=== PATIENT | female | born 1955 | race Two or more races ===

== ENCOUNTER → 2017-03-19 | Outpatient (CLI) | payer OTHER ==
[~2017-03-19] MED LIST: /DULO30CA; /METH500TA; CAPS0.022 TOP; CELE100C; CHEL50TA PO; COLA100C2; CYMB60CA3 PO; FERR325T3 PO; HYDR-3713 PO; IBUP-1022 PO; LYRI150C PO; LYRI300C; METH1TAB40 PO; MICO2CRE33 TOP; MS C30TA2; MS C30TA6 PO; MULTCAP11 PO; MULTIVIT; OMEP20TA7; OS-CTAB6 PO; PRIL20CA9 PO; TRIA1OI TOP; VICO5TAB; [UNRECOGNIZED DRUG - OTHER]
--- NOTE | 2017-03-19 13:43 | REPMRS ---
Patient History The patient states she had a clinical breast exam in January 2017.Patient is postmenopausal and has history of other cancer at age 34. Family history of ovarian cancer in 2 maternal aunts at age 50 or over and ovarian cancer in paternal aunt at age 50 or over. Digital Mammo Screening Bilat: March 19, 2017 - Exam #: [id number] Bilateral CC and MLO view(s) were taken. Technologist: Janessa Farr, Technologist Prior study comparison: May 29, 2015, digital woman screen mammo, performed at [facility]. January 27, 2013, digital bilateral screening mammo, performed at [facility]. June 05, 2011, digital bilateral screening mammo, performed at [facility]. FINDINGS: There are scattered fibroglandular densities. There has been no change in the appearance of the mammogram from the prior studies. There is a mild amount of scattered fibroglandular density which is fairly symmetric. There is no interval development of dominant mass, architectural distortion, or clustered microcalcification suggestive of malignancy. ASSESSMENT: BI-RADS/ACR category 1 mammogram. Negative. Recommendation Routine screening mammogram in 1 year (for women over age 40). This mammogram was interpreted with the aid of an FDA-approved computer-aided dectection system. Electronically Signed By: Aristides Canales MD 03/19/17 [id number]
== END ==
LOC: M RAD 11:11
PROVIDERS: ATTEND Internal Medicine
DX: Z12.31 Encounter for screening mammogram for malignant neoplasm of breast (principal); Z78.0 Asymptomatic menopausal state

== ENCOUNTER → 2017-05-05 | Outpatient (REF) | payer OTHER | LOC: M LAB REF 12:34 | PROVIDERS: ATTEND Internal Medicine Medical Oncology | DX: D50.9 Iron deficiency anemia, unspecified (principal) ==

== ENCOUNTER → 2017-08-19 | Outpatient (REF) | payer OTHER ==
[2017-08-19 16:24] LABS: FERRITIN 76 NG/ML (8-252); IRON (FE) 87 UG/DL (50-170); PERCENT SATURATION 27.2 % (13.2-45.0); TOTAL IRON BINDING CAPACITY 320 UG/DL (250-450)
== END ==
LOC: M LAB REF 13:50
DX: D50.9 Iron deficiency anemia, unspecified (principal)
CPT/HCPCS: 83550

== ENCOUNTER → 2017-09-13 | Outpatient (CLI) | payer OTHER | LOC: M RAD 10:08 | DX: Z12.2 Encounter for screening for malignant neoplasm of respiratory organs (principal); Z87.891 Personal history of nicotine dependence | CPT/HCPCS: G0297 ==

== ENCOUNTER → 2018-07-11 | Outpatient (REF) | payer OTHER | LOC: M SFHCLERA 12:07 | PROVIDERS: ATTEND Nurse Practitioner Family | DX: R53.81 Other malaise (principal) ==

== ENCOUNTER → 2018-07-11 | Outpatient (CLI) | payer OTHER ==
--- NOTE | 2018-07-11 12:53 | REP ---
Clinical: Malaise Comparison: 03/27/2008 the Technique: PA and lateral. Findings: The mediastinum and cardiac silhouette are normal. The lung walton are clear and without acute consolidation, effusion, or pneumothorax. The skeletal structures are intact and normal. Impression: 1. No acute cardiopulmonary process. Electronically Signed by Grey Fox MD 07/11/2018 12:45 P
== END ==
LOC: M LRY 12:31
PROVIDERS: ATTEND Nurse Practitioner Family
DX: R53.81 Other malaise (principal)

== ENCOUNTER → 2018-08-26 | Outpatient (CLI) | payer OTHER ==
--- NOTE | 2018-08-26 19:25 | REP ---
MAXILLOFACIAL CT WITHOUT CONTRAST: HISTORY: Sinusitis. Mild mucosal thickening is present in the ethmoid sinuses. Minimal mucosal thickening is present in the frontal, maxillary and sphenoid sinuses. Mucosal thickening involves the ostiomeatal units. A 5 mm osteoma is present in the left ethmoid sinus. The middle and inferior nasal turbinates are partially paradoxical. There is minimal deviation of the nasal septum to the left. The nasal septum abuts the left middle and inferior nasal turbinates. The cribriform plate, medial jennings of the orbits and optic canals are intact. The carotid canals form a segment of the posterolateral jennings of the sphenoid sinus. IMPRESSION: 1. Sinus mucosal thickening as described above. 2. 5 mm left ethmoid sinus osteoma. Electronically Signed by Emanuel Oneal MD 08/29/2018 08:17 A
== END ==
LOC: M RAD 17:02
PROVIDERS: ATTEND Internal Medicine
DX: J32.1 Chronic frontal sinusitis (principal); J32.2 Chronic ethmoidal sinusitis; J32.0 Chronic maxillary sinusitis; J32.3 Chronic sphenoidal sinusitis; J34.2 Deviated nasal septum; D16.4 Benign neoplasm of bones of skull and face

== ENCOUNTER 2019-02-03 09:52 | Day surgery (SDC) | payer OTHER ==
[~2019-02-03] VITALS: Ht 152.4 cm; Wt 86.6 kg
[~2019-02-03 09:52] MED LIST changes: -/DULO30CA; -/METH500TA; +CYMB1CAP5; +LISI10TA4 PO; +METH1TAB40; -MICO2CRE33 TOP; +MICO2CRE42 TOP; +NO ITAB PO; +NS 1,000 ML IV ONE; +OMEP20CA4 PO; +OS-CTAB PO; +PILO1OPD OD
[2019-02-03] MEDS ORDERED: PROPOFOL 200 MG/20 ML VIAL As Ordered ONE (10:58)
[2019-02-03] MEDS ORDERED: LIDOCAINE 2% INJ 100 MG/5 ML SDV (FOR ANES.) As Ordered ONE (10:58)
--- NOTE | 2019-02-03 11:09 | ROOR ---
Patient Name: Racheal Ricci Procedure Date: 02/03/2019 10:56 AM Date of : 1955 Age: 63 Room: [facility] Gender: Female Note Status: Finalized Procedure: Upper GI endoscopy Indications: Heartburn Providers: Brad VASQUEZ MD Referring MD: ADONIS JIMENEZ MD Requesting Provider: Medicines: Monitored Anesthesia Care Complications: No immediate complications. Procedure: Pre-Anesthesia Assessment: - The heart rate, respiratory rate, oxygen saturations, blood pressure, adequacy of pulmonary ventilation, and response to care were monitored throughout the procedure. The Endoscope was introduced through the mouth, and advanced to the jejunum. The upper GI endoscopy was accomplished without difficulty. The patient tolerated the procedure well. Findings: A medium-sized hiatal hernia was present. Evidence of a Spike-en-Y gastrojejunostomy was found. The gastrojejunal anastomosis was characterized by healthy appearing mucosa. The exam of the stomach was otherwise normal. The examined esophagus was normal. The Z-line was regular and was found 34 cm from the incisors. The examined jejunum was normal. Impression: - Medium-sized hiatal hernia. - Spike-en-Y gastrojejunostomy with gastrojejunal anastomosis characterized by healthy appearing mucosa. - Normal examined efferrent jejunum. - Normal esophagus. - Z-line regular, 34 cm from the incisors. - No specimens collected. Recommendation: - Continue present medications. - Observe patient's clinical course. Brad Vasquez MD Brad VASQUEZ MD 02/03/2019 11:08:59 AM Electronically signed by Brad VASQUEZ MD Number of Addenda: 0 Note Initiated On: 02/03/2019 10:56 AM Estimated Blood Loss: Estimated blood loss: none.
--- NOTE | 2019-02-03 11:27 | ROOR ---
Patient Name: Racheal Ricci Procedure Date: 02/03/2019 10:57 AM Date of : 1955 Age: 63 Room: [facility] Gender: Female Note Status: Finalized Procedure: Colonoscopy Indications: Colon cancer screening in patient at increased risk: Family history of hereditary nonpolyposis colorectal cancer Providers: Brad KELLY MD Referring MD: ADONIS JIMENEZ MD Requesting Provider: Medicines: Monitored Anesthesia Care Complications: No immediate complications. Procedure: Pre-Anesthesia Assessment: - The heart rate, respiratory rate, oxygen saturations, blood pressure, adequacy of pulmonary ventilation, and response to care were monitored throughout the procedure. The Colonoscope was introduced through the anus and advanced to the cecum, identified by appendiceal orifice and ileocecal valve. The colonoscopy was performed with difficulty due to inadequate bowel prep. The patient tolerated the procedure well. The quality of the bowel preparation was inadequate. Findings: The perianal and digital rectal examinations were normal. (Colon Prep was POOR, Inadequate Visualisation) The colon is grossly normal without large tumors or obstructing lesions. Unable to perform adequate detail examination. Small lesions may have been missed. Impression: - (Colon Prep was POOR, Inadequate Visualisation) - The colon is grossly normal without large tumors or obstructing lesions. Unable to perform adequate detail examination. Small lesions may have been missed. - No specimens collected. Recommendation: - Repeat colonoscopy at the next available appointment for screening purposes. - My office will call you within the next few days to reschedule a colonoscopy with alternate colon preparation. - Consider Genetic testing for your family history of Wilson/HNPCC. In the absence of genetic testing, would continue to recommend annual colonoscopy. Brad Kelly MD Brad KELLY MD 02/03/2019 11:26:56 AM Electronically signed by Brad KELLY MD Number of Addenda: 0 Note Initiated On: 02/03/2019 10:57 AM Estimated Blood Loss: Estimated blood loss: none.
[2019-02-03 11:55] VITALS: BP 146/73
== END 2019-02-03 11:57 | disposition home or self-care (01) ==
LOC: M OPP 09:52
PROVIDERS: ATTEND Internal Medicine Gastroenterology
DX: Z12.11 Encounter for screening for malignant neoplasm of colon (principal); Z80.0 Family history of malignant neoplasm of digestive organs; K44.9 Diaphragmatic hernia without obstruction or gangrene; Z98.0 Intestinal bypass and anastomosis status; R12 Heartburn; F17.210 Nicotine dependence, cigarettes, uncomplicated; Z79.891 Long term (current) use of opiate analgesic; Z79.899 Other long term (current) drug therapy; Z91.048 Other nonmedicinal substance allergy status; Z88.8 Allergy status to other drugs, medicaments and biological substances

== ENCOUNTER 2019-04-25 09:00 | Day surgery (SDC) | payer OTHER ==
[~2019-04-25] VITALS: Ht 152.4 cm; Wt 83.9 kg
[~2019-04-25 09:00] MED LIST changes: +AMMO12LO TOP; +FURO20TA2 PO; +LIDOCAINE 2% INJ 100 MG/5 ML SDV (FOR ANES.) As Ordered ONE; +MUCI600T31 PO; +OMEP1CAP73 PO; -OMEP20CA4 PO; +PLAQ200T4 PO; +POTA10TA17 PO; +VITA500C19 PO; +[UNRECOGNIZED DRUG - CODE] SL; +propofoL 200 MG/20 ML VIAL As Ordered ONE
--- NOTE | 2019-04-25 10:12 | ROOR ---
Patient Name: Racheal Ricci Procedure Date: 04/25/2019 9:44 AM Date of : 1955 Age: 63 Room: [facility] Gender: Female Note Status: Finalized Procedure: Colonoscopy Indications: High risk colon cancer surveillance: Personal history of colonic polyps, Family history of colon cancer in multiple second-degree relatives Providers: Brad KELLY MD Referring MD: ADONIS JIMENEZ MD Requesting Provider: Medicines: Monitored Anesthesia Care Complications: No immediate complications. Procedure: Pre-Anesthesia Assessment: - The heart rate, respiratory rate, oxygen saturations, blood pressure, adequacy of pulmonary ventilation, and response to care were monitored throughout the procedure. The Colonoscope was introduced through the anus and advanced to the cecum, identified by appendiceal orifice and ileocecal valve. The colonoscopy was performed without difficulty. The patient tolerated the procedure well. The quality of the bowel preparation was good. The bowel preparation used was TriLyte 8 liters split dosing=Neurogenic Prep dose instruction. Findings: The perianal and digital rectal examinations were normal. The colon (entire examined portion) appeared normal. Small Internal Hemorrhoids. Impression: - The entire colon is normal. - Small Internal Hemorrhoids. - No specimens collected. Recommendation: - Your genetic testing is Negative for Wilson Syndrome. - However you do have a strong family history of colon cancer. Rec: Repeat colonoscopy in 5 years. - (For next colonoscopy use again Neurogenic colon prep/8 Liters Trilyte) Brad Kelly MD Brad KELLY MD 04/25/2019 10:12:19 AM Electronically signed by Brad KELLY MD Number of Addenda: 0 Note Initiated On: 04/25/2019 9:44 AM Estimated Blood Loss: Estimated blood loss: none.
[2019-04-25 10:25] VITALS: BP 166/94
== END 2019-04-25 10:31 | disposition home or self-care (01) ==
LOC: M OPP 09:00
PROVIDERS: ATTEND Internal Medicine Gastroenterology
DX: Z12.11 Encounter for screening for malignant neoplasm of colon (principal); Z86.010 Personal history of colon polyps; Z80.0 Family history of malignant neoplasm of digestive organs; K64.8 Other hemorrhoids; I10 Essential (primary) hypertension; K44.9 Diaphragmatic hernia without obstruction or gangrene; K76.89 Other specified diseases of liver; K21.9 Gastro-esophageal reflux disease without esophagitis; M06.9 Rheumatoid arthritis, unspecified; M19.90 Unspecified osteoarthritis, unspecified site; M54.89 Other dorsalgia; M81.0 Age-related osteoporosis without current pathological fracture; M79.7 Fibromyalgia; L30.1 Dyshidrosis [pompholyx]; R21 Rash and other nonspecific skin eruption; R51 Headache; G47.30 Sleep apnea, unspecified; R06.83 Snoring; J32.9 Chronic sinusitis, unspecified; F17.210 Nicotine dependence, cigarettes, uncomplicated; Z88.8 Allergy status to other drugs, medicaments and biological substances; Z91.048 Other nonmedicinal substance allergy status; Z79.899 Other long term (current) drug therapy

== ENCOUNTER → 2019-06-12 | Outpatient (CLI) | payer MEDICARE, OTHER ==
[~2019-06-12] MED LIST changes: -LIDOCAINE 2% INJ 100 MG/5 ML SDV (FOR ANES.) As Ordered ONE; -NS 1,000 ML IV ONE; -OMEP1CAP73 PO; +OMEP20CA4 PO; -propofoL 200 MG/20 ML VIAL As Ordered ONE
--- NOTE | 2019-06-12 11:02 | REP ---
Clinical: Lung screening. History smoking. Comparison: 09/13/2017 Technique: Axial low-dose noncontrast images from the thoracic inlet to the upper abdomen using lung screening technique. Findings: The lung walton are well-aerated. Incidental azygos fissure again noted. Small calcified granuloma in the left upper lobe remains stable. No consolidation, significant nodule or mass lesion is appreciated. No pleural effusion/reaction or pneumothorax. Tracheobronchial tree is patent. Mediastinum demonstrates mild atherosclerotic changes of the coronary arteries without cardiomegaly. Impression: Lung-RADS category I. No nodule or suspicious abnormality. Management recommendations include annual low-dose CT reevaluation. Electronically Signed by Grey Fox MD 06/12/2019 10:54 A
== END ==
LOC: M RAD 09:57
PROVIDERS: ATTEND Family Medicine
DX: F17.210 Nicotine dependence, cigarettes, uncomplicated (principal)

== ENCOUNTER 2019-09-07 19:02 | Emergency (ER) | payer MEDICARE, OTHER ==
[~2019-09-07] VITALS: Ht 147.3 cm; Wt 77.7 kg
[~2019-09-07 19:02] MED LIST changes: -OSEL75CA PO; -PRED20TA PO
[2019-09-07 19:09] VITALS: BP 141/75
[2019-09-07] MEDS ORDERED: NS 500 ML IV ONE (19:45)
[2019-09-07] MEDS ORDERED: IPRATROPIUM 0.5MG/ALBUTEROL 2.5MG INH SOL UD 3ML (DUONEB)(J7620) NEB ONE (20:00)
[2019-09-07] MEDS ORDERED: dexameTHASONE 20 MG/5 ML VIAL (J1100) IV ONE (20:00)
[2019-09-07] MEDS ORDERED: FUROSEMIDE 100 MG/10 ML VIAL (J1940) IV ONE (20:45)
[2019-09-07 21:48] LABS: BASO % 0.2 % (0.0-1.0); EOS % 0.1 % (0.0-3.0); HEMATOCRIT 37.5 % (36.0-47.0); LYMPH # 1.6 10^3/uL (1.5-5.0); LYMPH % 12.7 % (24.0-44.0); MEAN CORPUSCULAR HEMOGLOBIN 26.5 pg (27.0-33.0); MEAN CORPUSCULAR VOLUME 82.8 fl (80.0-96.0); MONO # 0.8 10^3/uL (0.0-0.8); MONO % 6.1 % (0.0-5.0); NEUTROPHILS # 10.3 10^3/uL (1.5-8.5); NEUTROPHILS % 80.4 % (36.0-66.0); PLATELET COUNT, AUTOMATED 280 10^3/uL (150-450); RED BLOOD COUNT 4.53 10^6/uL (4.00-5.40); WHITE BLOOD COUNT 12.8 10^3/uL (4.0-10.0)
[2019-09-07 22:02] LABS: BLOOD UREA NITROGEN 9 MG/DL (7-18); CALCIUM LEVEL 8.7 MG/DL (8.8-10.2); CARBON DIOXIDE LEVEL 28 MEQ/L (21-32); CHLORIDE LEVEL 100 MEQ/L (98-107); CREATININE FOR GFR 0.66 MG/DL (0.55-1.30); GLOMERULAR FILTRATION RATE > 60.0 (>45); GLUCOSE, FASTING 101 MG/DL (70-100); POTASSIUM SERUM 3.9 MEQ/L (3.5-5.1); SODIUM LEVEL 133 MEQ/L (136-145)
[2019-09-07 22:18] LABS: INFLUENZA A AMPLIFICATION POSITIVE (NEGATIVE); INFLUENZA B AMPLIFICATION NEGATIVE (NEGATIVE)
[2019-09-07] MEDS ORDERED: OSELTAMIVIR PHOSPHATE 75 MG CAP (TAMIFLU) PO ONE (22:30)
[2019-09-07] MEDS ORDERED: KETOROLAC 30 MG/ML VIAL (J1885) IV ONE (22:30)
[2019-09-07] MEDS ORDERED: PRED20TA PO (22:57)
[2019-09-07] MEDS ORDERED: OSEL75CA PO (22:57)
--- NOTE | 2019-09-08 07:56 | REP ---
PA and lateral chest, 08:21 p.m.: Comparison is the PA and lateral chest from 05:47 p.m.. The lung walton are clear. Cardiac size is normal. The kinsey, mediastinum, skeletal structures are unremarkable except for a tortuous thoracic aorta with a prominent aortic arch, unchanged. An azygos lobe of the right lung is incidentally identified. A hiatal hernia is again incidentally identified. A cervical spine stabilization plate is again identified. Impression: No acute cardiopulmonary findings. No interval change. Electronically Signed by Abisai Prajapati MD 09/08/2019 07:48 A
== END 2019-09-07 23:35 | disposition home or self-care (01) ==
LOC: M ED 19:02
DX: J09.X2 Influenza due to identified novel influenza A virus with other respiratory manifestations (principal); J40 Bronchitis, not specified as acute or chronic; K21.9 Gastro-esophageal reflux disease without esophagitis; Z79.891 Long term (current) use of opiate analgesic; Z79.899 Other long term (current) drug therapy
CPT/HCPCS: 71046; 80048; 85025; 87040; 87502; 87804; 94640; 96374; 96375; 99283; G0463; J1100; J1885; J1940; J7613

== ENCOUNTER → 2019-09-07 | Outpatient (CLI) | payer MEDICARE, OTHER ==
[~2019-09-07] MED LIST changes: +OMEP1CAP73 PO; -OMEP20CA4 PO; +OSEL75CA PO; +PRED20TA PO
--- NOTE | 2019-09-07 18:12 | REP ---
Chest x-ray: Two views. History: Shortness of breath. Comparison chest x-ray: July 11, 2018. Findings: An azygos lobe is again noted. The patient is status post ventral discectomy and fusion plating in the cervical spine. The thoracic aorta is tortuous and calcific. There is evidence of a small sliding-type hiatal hernia. The heart is not enlarged. There is levoconvex curvature in the lower thoracic spine. Pulmonary vasculature is not increased. Impression: Mild hyperinflation. Small hiatal hernia. Otherwise no acute disease. Electronically Signed by Florin Canales MD 09/07/2019 06:03 P
== END ==
LOC: M LRY 17:38
PROVIDERS: ATTEND Nurse Practitioner Family
DX: K44.9 Diaphragmatic hernia without obstruction or gangrene (principal); R06.02 Shortness of breath

== ENCOUNTER → 2020-06-24 | Outpatient (CLI) | payer SELFPAY ==
[~2020-06-24] MED LIST changes: +OSEL75CA PO; +PRED20TA PO
== END ==
LOC: M LABSMTC 16:03
PROVIDERS: ATTEND Pediatrics
DX: Z20.828 Contact with and (suspected) exposure to other viral communicable diseases (principal)

== ENCOUNTER → 2020-07-24 | Outpatient (CLI) | payer MEDICARE, OTHER ==
[~2020-07-24] MED LIST changes: +LISI10TA22 PO; -LISI10TA4 PO; +METH-1164 PO; -METH1TAB40 PO
--- NOTE | 2020-07-24 14:25 | REP ---
INDICATION: NICOTINE DEPENDENCE COMPARISON: 06/12/2019, 09/13/2017 TECHNIQUE: Axial noncontrast images from the thoracic inlet to the upper abdomen using low-dose lung screening technique (LDCT). FINDINGS: Lung walotn are well aerated and essentially clear. Incidental azygos fissure noted. Small calcified density in the left upper lobe remains unchanged. No suspicious consolidation, nodule, or mass lesion. No effusion. No pneumothorax. IMPRESSION: Lung-RADS category 1. Management recommendations include annual low-dose CT surveillance. <Electronically signed by Grey Fox > 07/24/20 [id number]
== END ==
LOC: M RAD 13:42
PROVIDERS: ATTEND Family Medicine
DX: Z12.2 Encounter for screening for malignant neoplasm of respiratory organs (principal); F17.210 Nicotine dependence, cigarettes, uncomplicated

== ENCOUNTER → 2021-01-31 | Outpatient (CLI) | payer MEDICARE, OTHER ==
--- NOTE | 2021-01-31 11:35 | REPVR ---
PROCEDURE INFORMATION: Exam: CT Maxillofacial Without Contrast, Sinus Exam date and time: 01/31/2021 10:05 AM Age: 65 years old Clinical indication: Pain; Other: Sinus; Additional info: Pansinusitis TECHNIQUE: Imaging protocol: CT Maxillofacial without contrast. Focus on the sinuses. Radiation optimization: All CT scans at this facility use at least one of these dose optimization techniques: automated exposure control; mA and/or kV adjustment per patient size (includes targeted exams where dose is matched to clinical indication); or iterative reconstruction. COMPARISON: CT Maxilofacial w/out contrast 08/26/2018 5:16 PM FINDINGS: Frontal sinuses: Trace right frontal recess mucosal thickening, improved since prior. Small left frontal sinus air-fluid level. The left frontal recess is opacified by fluid or mucosal disease. Ethmoid air cells: Mild scattered ethmoid mucosal thickening. Sphenoid sinuses: Normal. No air-fluid levels. Maxillary sinuses: Normal. No air-fluid levels. Ostiomeatal units are patent. Nasal cavity/Septum: No nasal cavity masses. The nasal septum is mildly deviated to the left. There is left francisca lamella. Orbital cavity: Orbits are normal. Globes are unremarkable. Bones/joints: Unremarkable. Soft tissues: Unremarkable. Mastoid air cells: The mastoids are chronically underpneumatized. Nonspecific fluid in the right mastoid antrum, new since prior, potentially reflects eustachian dysfunction. IMPRESSION: Nonspecific fluid in the left frontal sinus may be consistent with acute sinusitis. Electronically signed by: Anna Sahni On 01/31/2021 11:34:33 AM
== END ==
LOC: M RAD 09:47
PROVIDERS: ATTEND Otolaryngology
DX: J32.4 Chronic pansinusitis (principal)

== ENCOUNTER → 2021-02-15 | Outpatient (CLI) | payer MEDICARE, OTHER ==
[~2021-02-15] MED LIST changes: +CYAN1000VL IM; +HYDR-4514 PO; +NASA1SPR NARES; +SALA1TAB PO; +TRAZ-252 PO
== END ==
LOC: M LABSMTC 10:46
PROVIDERS: ATTEND Anesthesiology
DX: Z01.812 Encounter for preprocedural laboratory examination (principal); Z20.822 Contact with and (suspected) exposure to COVID-19

== ENCOUNTER 2021-02-20 10:10 | Day surgery (SDC) | payer MEDICARE, OTHER ==
[~2021-02-20] VITALS: Ht 147.3 cm; Wt 79.9 kg
[~2021-02-20 10:10] MED LIST changes: +LIDOCAINE 1% MDV 20ML VIAL SQ PRN; +LR 1,000 ML IV ONE
[2021-02-20] MEDS ORDERED: SYNT25TA PO (10:34)
[2021-02-20] MEDS ORDERED: CIPRODEX OTIC SUSP 7.5ML As Ordered ONE (11:34)
[2021-02-20] MEDS ORDERED: CETACAINE SPRAY 5GM As Ordered ONE (11:34)
[2021-02-20] MEDS ORDERED: EPINEPHrine 1MG/ML INJ 30ML MD-VIAL As Ordered ONE (11:35)
[2021-02-20] MEDS ORDERED: LIDOCAINE W/EPINEPHRINE 1% 20ML VIAL As Ordered ONE (11:35)
[2021-02-20] MEDS ORDERED: METHYLENE BLUE 0.5% (5MG/ML) 10 ML AMP (PROVAYBLUE) As Ordered ONE (11:35)
[2021-02-20] MEDS ORDERED: ACETAMINOPHEN 1000MG 100ML IV BTL (OFIRMEV) (J0131 PER 10MG) As Ordered ONE (12:15)
[2021-02-20] MEDS ORDERED: fentaNYL 100 MCG/2 ML INJECTION (J3010) As Ordered ONE ×2 (12:23→12:55)
[2021-02-20] MEDS ORDERED: MIDAZOLAM INJ 2MG/2ML VIAL (J2250 PER 1MG) As Ordered ONE (12:23)
[2021-02-20] MEDS ORDERED: ROCURONIUM BROMIDE 50 MG/5 ML VIAL As Ordered ONE (12:27)
[2021-02-20] MEDS ORDERED: dexameTHASONE 4 MG/ML 1ML VIAL (J1100 PER 1MG) As Ordered ONE (12:27)
[2021-02-20] MEDS ORDERED: ePHEDrine SULFATE 25 MG/5 ML(5MG/ML) SYRINGE As Ordered ONE (12:27)
[2021-02-20] MEDS ORDERED: propofoL 200 MG/20 ML VIAL As Ordered ONE (12:27)
[2021-02-20] MEDS ORDERED: PHENYLephrine 500MCG 5ML (100MCG/ML) SYRINGE As Ordered ONE (12:27)
[2021-02-20] MEDS ORDERED: SUGAMMADEX SODIUM 500 MG/5 ML VIAL (BRIDION) As Ordered ONE (12:28)
[2021-02-20] MEDS ORDERED: ONDANSETRON 4MG/2ML VIAL As Ordered ONE (12:28)
[2021-02-20] MEDS ORDERED: oxyCODONE 5MG TAB PO PRN (13:30)
[2021-02-20] MEDS ORDERED: ONDANSETRON 4MG/2ML VIAL IV PRN (13:30)
[2021-02-20] MEDS ORDERED: LR 1,000 ML IV SCH (13:30)
[2021-02-20] MEDS ORDERED: fentaNYL 100 MCG/2 ML INJECTION (J3010) IV PRN (13:30)
[2021-02-20] MEDS: HYDROMORPHONE HCL 0.5 MG/ 0.5 ML SYRINGE (J1170 PER 1) IV PRN ×2 (14:10→14:18)
[2021-02-20] MEDS ORDERED: LABETALOL 100MG/20ML VIAL IV PRN (14:10)
[2021-02-20] MEDS: hydrALAZINE 20MG/ML 1ML VIAL (J0360 PER 20MG) IV PRN ×3 (14:14→14:26)
[2021-02-20 14:26] VITALS: BP 162/91
[2021-02-20 15:55] VITALS: BP 117/65
--- NOTE | 2021-02-21 08:22 | RO ---
OPERATIVE NOTE DATE OF OPERATION: 02/20/2021 PREOPERATIVE DIAGNOSIS: Chronic frontal sinusitis, laryngitis and bilateral otitis media effusion. POSTOPERATIVE DIAGNOSIS: Chronic frontal sinusitis, laryngitis and bilateral otitis media effusion. OPERATIVE PROCEDURE: Bilateral nasofrontal sinusotomy, laryngoscopy, biopsy and bilateral tympanostomy. SURGEON: Thony Whitlock MD MILL ORDER SCHEDULER: ANESTHESIA: FINDINGS: There was swollen mucosa in the entry point of the nasofrontal area on both sides especially on the left side. There were bilateral middle ear effusions. 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 DESCRIPTION OF PROCEDURE: Under general anesthesia with the patient intubated, the patient prepped and draped in the usual manner. I used pledgets of adrenalin 1:1000. I removed part of the lateral aspect of the anterior part of the middle turbinate on the right side and then opened up into the area above. The above findings were seen. I opened the nasofrontal area. The same procedure and findings were carried out on this side. I did not have to remove a portion of the middle turbinate on the left side. There was 10 mL estimated blood loss. I put Propel implant stents in both sites. I then put a speculum in the left ear. Wax was cleaned. An incision made inferiorly and fluid is suctioned. A tube is placed. The same procedure and findings carried out on the opposite side. A Hidalgo-Peter mouth gag was inserted. It was positioned in place. The above findings were seen. I used the suspension apparatus and then biopsied the lesion, removing the leukoplakia which was approximately 1 mm diameter midportion of the right vocal cord. I sprayed with Cetacaine. The patient tolerated the procedure well. The patient was extubated and transferred to the recovery room in excellent condition.
== END 2021-02-20 16:07 | disposition home or self-care (01) ==
LOC: M SDC 10:10
PROVIDERS: ATTEND Otolaryngology
DX: J31.0 Chronic rhinitis (principal); J38.3 Other diseases of vocal cords; H65.23 Chronic serous otitis media, bilateral; J37.0 Chronic laryngitis; M79.7 Fibromyalgia; I10 Essential (primary) hypertension; E03.9 Hypothyroidism, unspecified; F17.218 Nicotine dependence, cigarettes, with other nicotine-induced disorders; F32.9 Major depressive disorder, single episode, unspecified; F41.9 Anxiety disorder, unspecified; Z88.8 Allergy status to other drugs, medicaments and biological substances; G47.33 Obstructive sleep apnea (adult) (pediatric); Z79.899 Other long term (current) drug therapy
CPT/HCPCS: 31276; 31535; 69436; 88305; C2625; J0131; J0360; J1100; J1170; J2250; J2370; J2405; J3010; Q9968

== ENCOUNTER → 2021-09-02 | Outpatient (CLI) | payer MEDICARE, OTHER ==
[~2021-09-02] MED LIST changes: -CYMB60CA3 PO; +CYMB60CA4 PO; -LIDOCAINE 1% MDV 20ML VIAL SQ PRN; -LR 1,000 ML IV ONE; +SYNT25TA PO
[2021-09-02 12:26] LABS: HEMATOCRIT 32.5 % (36.0-47.0); MEAN CORPUSCULAR HEMOGLOBIN 24.7 pg (27.0-33.0); MEAN CORPUSCULAR HGB CONC 30.8 g/dl (32.0-36.5); MEAN CORPUSCULAR VOLUME 80.2 fl (80.0-96.0); PLATELET COUNT, AUTOMATED 427 10^3/uL (150-450); RED BLOOD COUNT 4.05 10^6/uL (4.00-5.40); WHITE BLOOD COUNT 8.8 10^3/uL (4.0-10.0)
[2021-09-02 12:39] LABS: INR 0.94
[2021-09-02 12:55] LABS: ALBUMIN 3.4 GM/DL (3.2-5.2); ALT/SGPT 17 U/L (12-78); BILIRUBIN,TOTAL 0.3 MG/DL (0.2-1.0); BLOOD UREA NITROGEN 17 MG/DL (7-18); CALCIUM LEVEL 8.8 MG/DL (8.8-10.2); CARBON DIOXIDE LEVEL 25 MEQ/L (21-32); CHLORIDE LEVEL 103 MEQ/L (98-107); CREATININE FOR GFR 0.71 MG/DL (0.55-1.30); GLOMERULAR FILTRATION RATE > 60.0 (>45); GLUCOSE, FASTING 90 MG/DL (70-100); POTASSIUM SERUM 4.6 MEQ/L (3.5-5.1); SODIUM LEVEL 135 MEQ/L (136-145); TOTAL PROTEIN 6.6 GM/DL (6.4-8.2)
[2021-09-02 13:00] LABS: ERYTHROCYTE SEDIMENTATION RATE 22 mm/hr (0-30)
== END ==
LOC: M RAD 11:29
PROVIDERS: ATTEND Orthopaedic Surgery
DX: Z01.818 Encounter for other preprocedural examination (principal); M17.12 Unilateral primary osteoarthritis, left knee

== ENCOUNTER → 2021-09-17 | Outpatient (CLI) | payer MEDICARE, OTHER | LOC: M RAD 10:52 | PROVIDERS: ATTEND Family Medicine | DX: Z12.2 Encounter for screening for malignant neoplasm of respiratory organs (principal); F17.210 Nicotine dependence, cigarettes, uncomplicated ==

== ENCOUNTER → 2022-02-19 | Outpatient (CLI) | payer MEDICARE, OTHER ==
[~2022-02-19] MED LIST changes: +POTA-150 PO; -POTA10TA17 PO
== END ==
LOC: M WHC 15:28
PROVIDERS: ATTEND Family Medicine
DX: Z12.31 Encounter for screening mammogram for malignant neoplasm of breast (principal)

== ENCOUNTER → 2022-09-10 | Outpatient (CLI) | payer MEDICARE, OTHER | LOC: M CARPUL 10:51 | PROVIDERS: ATTEND Internal Medicine Pulmonary Disease | DX: R91.8 Other nonspecific abnormal finding of lung field (principal) ==

== ENCOUNTER 2022-09-28 16:52 | Inpatient (IN) | payer MEDICARE, OTHER ==
[~2022-09-28] VITALS: Ht 147.3 cm; Wt 68.6 kg
[2022-09-28 17:42] LABS: BASO # 0.1 10^3/uL (0.0-0.2); BASO % 0.2 % (0.0-1.0); EOS # 0.1 10^3/uL (0.0-0.5); EOS % 0.2 % (0.0-3.0); HEMATOCRIT 32.1 % (36.0-47.0); HEMOGLOBIN 10.1 g/dl (12.0-15.5); LYMPH # 1.7 10^3/uL (1.5-5.0); LYMPH % 4.6 % (24.0-44.0); MEAN CORPUSCULAR HEMOGLOBIN 25.1 pg (27.0-33.0); MEAN CORPUSCULAR HGB CONC 31.5 g/dl (32.0-36.5); MEAN CORPUSCULAR VOLUME 79.7 fl (80.0-96.0); MONO % 4.7 % (2.0-8.0); NEUTROPHILS # 32.7 10^3/uL (1.5-8.5); NEUTROPHILS % 89.3 % (36.0-66.0); PLATELET COUNT, AUTOMATED 567 10^3/uL (150-450); RED BLOOD COUNT 4.03 10^6/uL (4.00-5.40)
[2022-09-28 18:07] LABS: BLOOD UREA NITROGEN 28 MG/DL (9-23); CARBON DIOXIDE LEVEL 24 MMOL/L (20-31); CHLORIDE LEVEL 99 MMOL/L (98-107); CREATININE FOR GFR 0.86 MG/DL (0.55-1.30); GLOMERULAR FILTRATION RATE > 60.0 (>45); GLUCOSE, FASTING 89 MG/DL (74-106); MONO # 1.7 10^3/uL (0.0-0.8); POTASSIUM SERUM 3.3 MMOL/L (3.5-5.1); SODIUM LEVEL 132 MMOL/L (136-145); WHITE BLOOD COUNT 36.7 10^3/uL (4.0-10.0)
[2022-09-28] MEDS ORDERED: POTASSIUM CHLORIDE 10MEQ SR TABLET PO ONE (18:10)
[2022-09-28] MEDS ORDERED: PIPERACILLIN/TAZOBACTAM SOD 4.5 GM in D5W MINI-BAG PLUS 50 ML IV ONE (18:15)
[2022-09-28] MEDS ORDERED: ISOVUE-370 76% 100ML VIAL As Ordered ONE (18:29)
[2022-09-28 19:09] LABS: CK-MB VALUE MASS 1.1 NG/ML (<3.6)
[2022-09-28 19:11] LABS: ALBUMIN 1.9 G/DL (3.2-5.2); ALKALINE PHOSPHATASE 302 U/L (46-116); ALT/SGPT 20 U/L (7.0-40); AST/SGOT 14 U/L (<34); BILIRUBIN,DIRECT < 0.1 MG/DL (<0.4); BILIRUBIN,TOTAL < 0.2 MG/DL (0.3-1.2); CPK CREATINE PHOSPHOKINASE 27 U/L (34-145); MB/CK RELATIVE INDEX 4.07 (< OR =4); TOTAL PROTEIN 5.7 G/DL (5.7-8.2)
[2022-09-28] MEDS ORDERED: NS 2,240 ML in IV 1 EA IV ONE (19:50)
[2022-09-28] MEDS ORDERED: LYRI200C PO (20:29)
[2022-09-28] MEDS ORDERED: CAPS42.54 TOP (20:29)
[2022-09-28] MEDS ORDERED: DULO30CA9 PO (20:29)
[2022-09-28] MEDS ORDERED: MS C15TA8 PO (20:29)
[2022-09-28] MEDS ORDERED: HYPR15DR3 OU (20:29)
[2022-09-28] MEDS ORDERED: VANI1CRE5 TOP (20:29)
[2022-09-28] MEDS ORDERED: ERGO500029 PO (20:29)
[2022-09-28] MEDS ORDERED: HOME MED LIST COMPLETE! XX SCH (20:35)
[2022-09-28] MEDS ORDERED: ANEXSIA, NORCO 7.5MG/325MG TABLET(HYDROCODONE/APAP) PO PRN (20:55)
[2022-09-28] MEDS ORDERED: TRIAMCINOLONE ACET 0.1% OINTMENT 15GM TOP PRN (20:55)
[2022-09-28] MEDS: MICONAZOLE TOPICAL 2% CREAM 15GM TOP SCH (21:00)
[2022-09-28] MEDS ORDERED: VANCOMYCIN HCL 1,000 MG, VIAL MATE ADAPTER 1 EACH in NS 250 ML IV SCH (21:20)
[2022-09-28 21:22] LABS: APPEARANCE, URINE CLEAR (CLEAR); BACTERIA, URINE AUTO NEGATIVE (NEGATIVE); BILIRUBIN, URINE AUTO NEGATIVE (NEGATIVE); BLOOD, URINE BLOOD NEGATIVE (NEGATIVE); COLOR, URINE YELLOW (YELLOW); GLUCOSE, URINE (UA) AUTO NEGATIVE (NEGATIVE); KETONE, URINE AUTO NEGATIVE (NEGATIVE); LEUKOCYTE ESTERASE, URINE AUTO NEGATIVE (NEGATIVE); NITRITE, URINE AUTO NEGATIVE (NEGATIVE); PROTEIN, URINE AUTO NEGATIVE (NEGATIVE); RBC, URINE AUTO 0 /HPF (0-3); SPECIFIC GRAVITY URINE AUTO 1.034 (1.002-1.035); SQUAMOUS EPITHELIAL CELL UR AU 4 /HPF (0-6); UROBILINOGEN, URINE AUTO 0.2 mg/dL (0.0-2.0); WBC, URINE AUTO 2 /HPF (0-3)
[2022-09-28] MEDS ORDERED: VANCOMYCIN HCL 750 MG, VIAL MATE ADAPTER 1 EACH in D5W 250 ML IV ONE ×2 (22:00→23:00)
[2022-09-28 22:10] VITALS: BP 133/68
[2022-09-28] MEDS: MORPHINE 15 MG SA TAB PO SCH (22:57)
[2022-09-28] MEDS: traZODone 50 MG TAB PO SCH (22:57)
[2022-09-28] MEDS: OMEPRAZOLE 20MG CAP PO SCH (22:58)
[2022-09-28] MEDS: DULoxetine 30MG CAPSULE (CYMBALTA) PO SCH (22:58)
[2022-09-28] MEDS: PREGABALIN 100 MG CAP (LYRICA) PO SCH (22:58)
[2022-09-29] VITALS (43 sets, daily range): BP systolic 78–122; BP diastolic 47–64; PULSE 120–125; O2SAT 91–99
[2022-09-29] MEDS: PIPERACILLIN/TAZOBACTAM SOD 4.5 GM in D5W MINI-BAG PLUS 50 ML IV SCH ×4 (01:12→18:33)
[2022-09-29] MEDS ORDERED: IPRATROPIUM 0.5MG/ALBUTEROL 2.5MG INH SOL UD 3ML (DUONEB) NEB ONE (01:40)
[2022-09-29] MEDS: LEVOTHYROXINE 25MCG TABLET (0.025MG) PO SCH (05:43)
[2022-09-29 05:45] LABS: HEMATOCRIT 33.1 % (36.0-47.0); HEMOGLOBIN 10.2 g/dl (12.0-15.5); MEAN CORPUSCULAR HEMOGLOBIN 24.6 pg (27.0-33.0); MEAN CORPUSCULAR HGB CONC 30.8 g/dl (32.0-36.5); MEAN CORPUSCULAR VOLUME 79.8 fl (80.0-96.0); PLATELET COUNT, AUTOMATED 594 10^3/uL (150-450); RED BLOOD COUNT 4.15 10^6/uL (4.00-5.40)
[2022-09-29 05:51] LABS: WHITE BLOOD COUNT 35.1 10^3/uL (4.0-10.0)
[2022-09-29 06:09] LABS: ALBUMIN 1.7 G/DL (3.2-5.2); ALKALINE PHOSPHATASE 283 U/L (46-116); ALT/SGPT 16 U/L (7.0-40); AST/SGOT 10 U/L (<34); BILIRUBIN,TOTAL 0.2 MG/DL (0.3-1.2); BLOOD UREA NITROGEN 22 MG/DL (9-23); CALCIUM LEVEL 7.9 MG/DL (8.3-10.6); CARBON DIOXIDE LEVEL 24 MMOL/L (20-31); CHLORIDE LEVEL 100 MMOL/L (98-107); GLOMERULAR FILTRATION RATE > 60.0 (>45); GLUCOSE, FASTING 71 MG/DL (74-106); MAGNESIUM LEVEL 1.6 MG/DL (1.8-2.4); POTASSIUM SERUM 3.6 MMOL/L (3.5-5.1); SODIUM LEVEL 135 MMOL/L (136-145); TOTAL PROTEIN 5.2 G/DL (5.7-8.2)
[2022-09-29] MEDS ORDERED: AZITHROMYCIN 250MG TABLET PO SCH (07:20)
[2022-09-29] MEDS ORDERED: DEXTROSE 50% 50ML SYRINGE IV PRN (07:35)
[2022-09-29] MEDS ORDERED: GLUCAGON INJ 1MG VIAL SC PRN (07:35)
[2022-09-29] MEDS ORDERED: MAG SULF 1GM/100ML (MAG RUN) 1 GM in IV 1 EA IV ONE (07:35)
[2022-09-29] MEDS ORDERED: GLUCOSE 4GM CHEW TABLET PO PRN (07:35)
[2022-09-29] MEDS: ENOXAPARIN 40MG/0.4ML SYRINGE (J1650 PER 10MG) SC SCH (08:21)
[2022-09-29] MEDS: MICONAZOLE TOPICAL 2% CREAM 15GM TOP SCH ×2 (08:22→20:16)
[2022-09-29] MEDS: DULoxetine 30MG CAPSULE (CYMBALTA) PO SCH ×2 (08:22→20:13)
[2022-09-29] MEDS: OMEPRAZOLE 20MG CAP PO SCH ×2 (08:23→20:13)
[2022-09-29] MEDS: SENNA 8.6 MG TAB (SENOKOT) PO SCH ×2 (08:23→20:13)
[2022-09-29] MEDS: PREGABALIN 75 MG CAP(LYRICA) PO SCH ×2 (08:23→15:00)
[2022-09-29] MEDS: MORPHINE 15 MG SA TAB PO SCH (08:24)
[2022-09-29 12:47] LABS: MAGNESIUM LEVEL 1.9 MG/DL (1.8-2.4)
[2022-09-29] MEDS ORDERED: LIDOCAINE 1% MDV 20ML VIAL As Ordered ONE ×2 (12:49→12:58)
[2022-09-29] MEDS ORDERED: flumazeniL 0.5MG/5ML VIAL As Ordered ONE (12:53)
[2022-09-29] MEDS ORDERED: MIDAZOLAM INJ 2MG/2ML VIAL As Ordered ONE ×2 (12:53→12:54)
[2022-09-29 13:11] LABS: VANCOMYCIN RANDOM 5.1 UG/ML
[2022-09-29] MEDS ORDERED: ALTEPLASE 2MG/2ML VIAL XX ONE (13:20)
[2022-09-29] MEDS ORDERED: MIDAZOLAM INJ 2MG/2ML VIAL IV STA (13:50)
[2022-09-29] MEDS ORDERED: LIDOCAINE 1% MDV 20ML VIAL SC ONE (13:50)
[2022-09-29] MEDS ORDERED: VANCOMYCIN HCL 750 MG, VIAL MATE ADAPTER 1 EACH in D5W 250 ML IV ONE (14:00)
[2022-09-29] MEDS ORDERED: ONDANSETRON 4MG 2ML VIAL IV PRN (14:05)
[2022-09-29] MEDS ORDERED: LEVALBUTEROL 1.25MG 0.5ML CONCENTRATE NEB NEB PRN (14:05)
[2022-09-29] MEDS ORDERED: BISACODYL 10MG SUPP PR PRN (14:05)
[2022-09-29 14:34] LABS: ABG BASE EXCESS -3.1 (-2.0-2.0); ABG HCO3 23.4 MEQ/L (22.0-26.0); ABG O2 SATURATION 96.8 % (95.0-99.0); ABG PARTIAL PRESSURE CO2 48.4 mmHg (35.0-45.0); ABG PARTIAL PRESSURE O2 93.9 mmHg (75.0-100.0); ABG STANDARD HCO3 21.9 MEQ/L (22.0-26.0); ABG TOTAL CO2 24.9 MEQ/L (23.0-31.0); ABG pH (ARTERIAL) 7.302 UNITS (7.350-7.450)
[2022-09-29] MEDS: MAGNESIUM OXIDE 400MG TAB (MAG-OX) PO SCH ×2 (15:09→20:13)
[2022-09-29] MEDS: KETOROLAC 30 MG/ML 1ML VIAL IV SCH ×2 (15:41→20:14)
[2022-09-29] MEDS: KCL 20MEQ IN D5/NS 1000ML 1,000 ML IV SCH (15:41)
[2022-09-29 17:09] LABS: ABG BASE EXCESS -1.8 (-2.0-2.0); ABG HCO3 24.4 MEQ/L (22.0-26.0); ABG O2 SATURATION 98.5 % (95.0-99.0); ABG PARTIAL PRESSURE CO2 48.2 mmHg (35.0-45.0); ABG PARTIAL PRESSURE O2 128.8 mmHg (75.0-100.0); ABG TOTAL CO2 25.9 MEQ/L (23.0-31.0); ABG pH (ARTERIAL) 7.323 UNITS (7.350-7.450)
[2022-09-29 18:44] LABS: SOURCE, BODY FLUID pH PLEURAL
[2022-09-29 19:09] LABS: SOURCE, BODY FLUID ALBUMIN PLEURAL
[2022-09-29 19:14] LABS: SOURCE, BODY FLUID TRIG PLEURAL; TRIGLYCERIDE, BODY FLUID 48 MG/DL (NOT ESTABLISHED)
[2022-09-29 19:15] LABS: SOURCE, BODY FLUID GLUCOSE PLEURAL
[2022-09-29 19:16] LABS: SOURCE, BODY FLUID TOT PROTEIN PLEURAL; TOTAL PROTEIN, BODY FLUID 3.9 G/DL (NOT ESTABLISHED)
[2022-09-29 19:16] LABS: AMYLASE, BODY FLUID 22 U/L (NOT ESTABLISHED); SOURCE, BODY FLUID AMYLASE PLEURAL
[2022-09-29 19:17] LABS: CHOLESTEROL, BODY FLUID 53 MG/DL (NOT ESTABLISHED); SOURCE, BODY FLUID CHOL PLEURAL
[2022-09-29] MEDS: LEVALBUTEROL 1.25MG 0.5ML CONCENTRATE NEB NEB SCH (19:18)
[2022-09-29 19:26] LABS: SOURCE, BODY FLUID LDH PLEURAL
[2022-09-29 19:28] LABS: LDH, BODY FLUID 3101 U/L (NOT ESTABLISHED)
[2022-09-29 19:31] LABS: APPEARANCE, BODY FLUID TURBID (CLEAR); PLEURAL FL COLOR RED (COLORLESS); SOURCE, BODY FLUID PLEURAL
[2022-09-29] MEDS: DOCUSATE SODIUM 100MG CAPSULE PO SCH (20:13)
[2022-09-29] MEDS: VANCOMYCIN HCL 750 MG, VIAL MATE ADAPTER 1 EACH in D5W 250 ML IV SCH (21:49)
[2022-09-30] VITALS (24 sets, daily range): BP systolic 91–151; BP diastolic 55–78; O2SAT 91–99
[2022-09-30] MEDS: PIPERACILLIN/TAZOBACTAM SOD 4.5 GM in D5W MINI-BAG PLUS 50 ML IV SCH ×4 (00:42→18:20)
[2022-09-30] MEDS: LEVALBUTEROL 1.25MG 0.5ML CONCENTRATE NEB NEB SCH ×4 (01:11→20:03)
[2022-09-30] MEDS: KETOROLAC 30 MG/ML 1ML VIAL IV SCH ×4 (02:40→20:32)
[2022-09-30] MEDS: KCL 20MEQ IN D5/NS 1000ML 1,000 ML IV SCH (02:59)
[2022-09-30] MEDS: LEVOTHYROXINE 25MCG TABLET (0.025MG) PO SCH (05:21)
[2022-09-30 05:22] LABS: BASO % 0.1 % (0.0-1.0); EOS % 0.2 % (0.0-3.0); HEMATOCRIT 27.5 % (36.0-47.0); HEMOGLOBIN 8.4 g/dl (12.0-15.5); LYMPH # 1.3 10^3/uL (1.5-5.0); LYMPH % 5.9 % (24.0-44.0); MEAN CORPUSCULAR HEMOGLOBIN 24.6 pg (27.0-33.0); MEAN CORPUSCULAR HGB CONC 30.5 g/dl (32.0-36.5); MEAN CORPUSCULAR VOLUME 80.6 fl (80.0-96.0); MONO % 4.5 % (2.0-8.0); NEUTROPHILS # 19.2 10^3/uL (1.5-8.5); NEUTROPHILS % 88.3 % (36.0-66.0); PLATELET COUNT, AUTOMATED 438 10^3/uL (150-450); RED BLOOD COUNT 3.41 10^6/uL (4.00-5.40); WHITE BLOOD COUNT 21.7 10^3/uL (4.0-10.0)
[2022-09-30 05:27] LABS: ABG BASE EXCESS -2.4 (-2.0-2.0); ABG HCO3 22.9 MEQ/L (22.0-26.0); ABG O2 SATURATION 95.9 % (95.0-99.0); ABG PARTIAL PRESSURE CO2 41.6 mmHg (35.0-45.0); ABG PARTIAL PRESSURE O2 82.3 mmHg (75.0-100.0); ABG STANDARD HCO3 22.4 MEQ/L (22.0-26.0); ABG TOTAL CO2 24.1 MEQ/L (23.0-31.0); ABG pH (ARTERIAL) 7.358 UNITS (7.350-7.450)
[2022-09-30 05:53] LABS: ALBUMIN 1.2 G/DL (3.2-5.2); ALKALINE PHOSPHATASE 198 U/L (46-116); ALT/SGPT 10 U/L (7.0-40); AST/SGOT 12 U/L (<34); BILIRUBIN,TOTAL 0.2 MG/DL (0.3-1.2); BLOOD UREA NITROGEN 21 MG/DL (9-23); CALCIUM LEVEL 7.4 MG/DL (8.3-10.6); CARBON DIOXIDE LEVEL 25 MMOL/L (20-31); CHLORIDE LEVEL 101 MMOL/L (98-107); CREATININE FOR GFR 0.71 MG/DL (0.55-1.30); GLOMERULAR FILTRATION RATE > 60.0 (>45); GLUCOSE, FASTING 114 MG/DL (74-106); POTASSIUM SERUM 3.4 MMOL/L (3.5-5.1); SODIUM LEVEL 134 MMOL/L (136-145); TOTAL PROTEIN 4.2 G/DL (5.7-8.2)
[2022-09-30] MEDS ORDERED: POTASSIUM CHLORIDE 10MEQ SR TABLET PO ONE (08:00)
[2022-09-30] MEDS ORDERED: MOM 30ML SUSPENSION UDC PO SCH (09:00)
[2022-09-30] MEDS: ENOXAPARIN 40MG/0.4ML SYRINGE (J1650 PER 10MG) SC SCH (10:31)
[2022-09-30] MEDS: PREGABALIN 75 MG CAP(LYRICA) PO SCH ×2 (10:32→15:21)
[2022-09-30] MEDS: OMEPRAZOLE 20MG CAP PO SCH ×2 (10:32→20:31)
[2022-09-30] MEDS: MAGNESIUM OXIDE 400MG TAB (MAG-OX) PO SCH ×2 (10:33→20:32)
[2022-09-30] MEDS: DOCUSATE SODIUM 100MG CAPSULE PO SCH ×2 (10:33→20:31)
[2022-09-30] MEDS: DULoxetine 30MG CAPSULE (CYMBALTA) PO SCH ×2 (10:33→20:31)
[2022-09-30] MEDS: MICONAZOLE TOPICAL 2% CREAM 15GM TOP SCH ×2 (10:35→20:38)
[2022-09-30] MEDS: VANCOMYCIN HCL 750 MG, VIAL MATE ADAPTER 1 EACH in D5W 250 ML IV SCH ×2 (10:35→22:05)
[2022-09-30] MEDS: PANTOPRAZOLE 40MG TAB (PROTONIX) PO SCH (10:38)
[2022-09-30] MEDS: PREGABALIN 100 MG CAP (LYRICA) PO SCH (20:31)
[2022-09-30] MEDS: traZODone 50 MG TAB PO SCH (20:32)
[2022-10-01] VITALS (22 sets, daily range): BP systolic 107–151; BP diastolic 61–85; O2SAT 91–98
[2022-10-01] MEDS: PIPERACILLIN/TAZOBACTAM SOD 4.5 GM in D5W MINI-BAG PLUS 50 ML IV SCH ×4 (00:19→19:34)
[2022-10-01] MEDS: LEVALBUTEROL 1.25MG 0.5ML CONCENTRATE NEB NEB SCH ×4 (01:12→20:48)
[2022-10-01] MEDS: KETOROLAC 30 MG/ML 1ML VIAL IV SCH ×4 (02:21→20:41)
[2022-10-01] MEDS: ACETAMINOPHEN TAB 650MG DOSE (2X325MG) PO PRN (05:08)
[2022-10-01] MEDS: LEVOTHYROXINE 25MCG TABLET (0.025MG) PO SCH (05:08)
[2022-10-01 05:56] LABS: BASO % 0.2 % (0.0-1.0); EOS # 0.1 10^3/uL (0.0-0.5); EOS % 0.7 % (0.0-3.0); HEMATOCRIT 29.4 % (36.0-47.0); HEMOGLOBIN 9.1 g/dl (12.0-15.5); LYMPH # 1.7 10^3/uL (1.5-5.0); LYMPH % 12.7 % (24.0-44.0); MEAN CORPUSCULAR HEMOGLOBIN 24.6 pg (27.0-33.0); MEAN CORPUSCULAR VOLUME 79.5 fl (80.0-96.0); MONO # 0.8 10^3/uL (0.0-0.8); MONO % 5.6 % (2.0-8.0); NEUTROPHILS # 10.9 10^3/uL (1.5-8.5); NEUTROPHILS % 79.4 % (36.0-66.0); PLATELET COUNT, AUTOMATED 494 10^3/uL (150-450); WHITE BLOOD COUNT 13.7 10^3/uL (4.0-10.0)
[2022-10-01 06:16] LABS: ALBUMIN 1.3 G/DL (3.2-5.2); ALKALINE PHOSPHATASE 188 U/L (46-116); ALT/SGPT 12 U/L (7.0-40); AST/SGOT 14 U/L (<34); BILIRUBIN,TOTAL 0.2 MG/DL (0.3-1.2); BLOOD UREA NITROGEN 17 MG/DL (9-23); CALCIUM LEVEL 7.8 MG/DL (8.3-10.6); CARBON DIOXIDE LEVEL 25 MMOL/L (20-31); CHLORIDE LEVEL 103 MMOL/L (98-107); CREATININE FOR GFR 0.61 MG/DL (0.55-1.30); GLOMERULAR FILTRATION RATE > 60.0 (>45); GLUCOSE, FASTING 86 MG/DL (74-106); SODIUM LEVEL 136 MMOL/L (136-145); TOTAL PROTEIN 4.6 G/DL (5.7-8.2)
[2022-10-01] MEDS: VANCOMYCIN HCL 750 MG, VIAL MATE ADAPTER 1 EACH in D5W 250 ML IV SCH ×2 (09:26→21:43)
[2022-10-01] MEDS: PANTOPRAZOLE 40MG TAB (PROTONIX) PO SCH (09:28)
[2022-10-01] MEDS: OMEPRAZOLE 20MG CAP PO SCH ×2 (09:28→20:42)
[2022-10-01] MEDS: ENOXAPARIN 40MG/0.4ML SYRINGE (J1650 PER 10MG) SC SCH (09:28)
[2022-10-01] MEDS: PREGABALIN 75 MG CAP(LYRICA) PO SCH ×2 (09:28→15:12)
[2022-10-01] MEDS: MAGNESIUM OXIDE 400MG TAB (MAG-OX) PO SCH ×2 (09:28→20:42)
[2022-10-01] MEDS: DULoxetine 30MG CAPSULE (CYMBALTA) PO SCH ×2 (09:29→20:42)
[2022-10-01] MEDS: DOCUSATE SODIUM 100MG CAPSULE PO SCH ×2 (09:29→20:43)
[2022-10-01] MEDS: MICONAZOLE TOPICAL 2% CREAM 15GM TOP SCH ×2 (09:30→21:00)
[2022-10-01] MEDS: PREGABALIN 100 MG CAP (LYRICA) PO SCH (20:42)
[2022-10-01] MEDS: traZODone 50 MG TAB PO SCH (20:42)
[2022-10-01] MEDS: MORPHINE 30 MG SA TAB PO SCH (20:43)
[2022-10-02] VITALS (20 sets, daily range): BP systolic 120–168; BP diastolic 60–82; O2SAT 90–97
[2022-10-02] MEDS: PIPERACILLIN/TAZOBACTAM SOD 4.5 GM in D5W MINI-BAG PLUS 50 ML IV SCH ×4 (01:17→18:20)
[2022-10-02] MEDS: LEVALBUTEROL 1.25MG 0.5ML CONCENTRATE NEB NEB SCH ×4 (02:30→20:00)
[2022-10-02] MEDS: KETOROLAC 30 MG/ML 1ML VIAL IV SCH ×4 (03:49→20:18)
[2022-10-02 05:35] LABS: BASO % 0.3 % (0.0-1.0); EOS # 0.1 10^3/uL (0.0-0.5); EOS % 1.2 % (0.0-3.0); HEMATOCRIT 29.3 % (36.0-47.0); HEMOGLOBIN 8.9 g/dl (12.0-15.5); LYMPH # 1.7 10^3/uL (1.5-5.0); LYMPH % 13.8 % (24.0-44.0); MEAN CORPUSCULAR HEMOGLOBIN 24.4 pg (27.0-33.0); MEAN CORPUSCULAR HGB CONC 30.4 g/dl (32.0-36.5); MEAN CORPUSCULAR VOLUME 80.3 fl (80.0-96.0); MONO # 0.8 10^3/uL (0.0-0.8); MONO % 6.3 % (2.0-8.0); NEUTROPHILS # 9.2 10^3/uL (1.5-8.5); NEUTROPHILS % 75.9 % (36.0-66.0); PLATELET COUNT, AUTOMATED 437 10^3/uL (150-450); RED BLOOD COUNT 3.65 10^6/uL (4.00-5.40); WHITE BLOOD COUNT 12.2 10^3/uL (4.0-10.0)
[2022-10-02 05:51] LABS: ALBUMIN 1.3 G/DL (3.2-5.2); ALKALINE PHOSPHATASE 227 U/L (46-116); ALT/SGPT 13 U/L (7.0-40); AST/SGOT 19 U/L (<34); BILIRUBIN,TOTAL 0.2 MG/DL (0.3-1.2); BLOOD UREA NITROGEN 14 MG/DL (9-23); CALCIUM LEVEL 7.9 MG/DL (8.3-10.6); CARBON DIOXIDE LEVEL 27 MMOL/L (20-31); CHLORIDE LEVEL 106 MMOL/L (98-107); CREATININE FOR GFR 0.59 MG/DL (0.55-1.30); GLOMERULAR FILTRATION RATE > 60.0 (>45); GLUCOSE, FASTING 88 MG/DL (74-106); POTASSIUM SERUM 4.2 MMOL/L (3.5-5.1); SODIUM LEVEL 137 MMOL/L (136-145); TOTAL PROTEIN 4.8 G/DL (5.7-8.2)
[2022-10-02] MEDS: LEVOTHYROXINE 25MCG TABLET (0.025MG) PO SCH (06:06)
[2022-10-02] MEDS: MORPHINE 30 MG SA TAB PO SCH ×2 (09:00→20:19)
[2022-10-02] MEDS: DOCUSATE SODIUM 100MG CAPSULE PO SCH ×2 (10:34→20:19)
[2022-10-02] MEDS: MAGNESIUM OXIDE 400MG TAB (MAG-OX) PO SCH ×2 (10:35→20:18)
[2022-10-02] MEDS: PREGABALIN 75 MG CAP(LYRICA) PO SCH ×2 (10:35→14:31)
[2022-10-02] MEDS: PANTOPRAZOLE 40MG TAB (PROTONIX) PO SCH (10:36)
[2022-10-02] MEDS: DULoxetine 30MG CAPSULE (CYMBALTA) PO SCH ×2 (10:36→20:19)
[2022-10-02] MEDS: OMEPRAZOLE 20MG CAP PO SCH ×2 (10:36→20:18)
[2022-10-02] MEDS: MICONAZOLE TOPICAL 2% CREAM 15GM TOP SCH ×2 (10:37→20:19)
[2022-10-02] MEDS: VANCOMYCIN HCL 750 MG, VIAL MATE ADAPTER 1 EACH in D5W 250 ML IV SCH (10:38)
[2022-10-02] MEDS: ENOXAPARIN 40MG/0.4ML SYRINGE (J1650 PER 10MG) SC SCH (10:38)
[2022-10-02 16:08] LABS: ANA (HEP2) Negative (.); ANCA-ATYPICAL <1:20 titer (Neg:<1:20); CYTOPLASMIC NEUTROP AB ANCA-C <1:20 titer (Neg:<1:20); PERINUCLEAR AB ANCA-P <1:20 titer (Neg:<1:20)
[2022-10-02] MEDS: traZODone 50 MG TAB PO SCH (20:18)
[2022-10-02] MEDS: PREGABALIN 100 MG CAP (LYRICA) PO SCH (20:18)
[2022-10-03] VITALS (26 sets, daily range): BP systolic 126–165; BP diastolic 60–80; O2SAT 90–97
[2022-10-03] MEDS: LEVALBUTEROL 1.25MG 0.5ML CONCENTRATE NEB NEB SCH ×4 (01:26→19:19)
[2022-10-03] MEDS: KETOROLAC 30 MG/ML 1ML VIAL IV SCH ×4 (02:28→21:07)
[2022-10-03] MEDS: PIPERACILLIN/TAZOBACTAM SOD 4.5 GM in D5W MINI-BAG PLUS 50 ML IV SCH ×3 (02:28→12:14)
[2022-10-03] MEDS: LEVOTHYROXINE 25MCG TABLET (0.025MG) PO SCH (06:31)
[2022-10-03 07:18] LABS: BASO % 0.3 % (0.0-1.0); EOS # 0.2 10^3/uL (0.0-0.5); EOS % 1.3 % (0.0-3.0); HEMOGLOBIN 9.2 g/dl (12.0-15.5); LYMPH # 1.7 10^3/uL (1.5-5.0); LYMPH % 14.4 % (24.0-44.0); MEAN CORPUSCULAR HEMOGLOBIN 24.5 pg (27.0-33.0); MEAN CORPUSCULAR HGB CONC 30.7 g/dl (32.0-36.5); MEAN CORPUSCULAR VOLUME 79.8 fl (80.0-96.0); MONO # 0.9 10^3/uL (0.0-0.8); MONO % 7.7 % (2.0-8.0); NEUTROPHILS # 8.4 10^3/uL (1.5-8.5); NEUTROPHILS % 71.8 % (36.0-66.0); PLATELET COUNT, AUTOMATED 431 10^3/uL (150-450); RED BLOOD COUNT 3.76 10^6/uL (4.00-5.40); WHITE BLOOD COUNT 11.7 10^3/uL (4.0-10.0)
[2022-10-03 07:48] LABS: ALBUMIN 1.4 G/DL (3.2-5.2); ALKALINE PHOSPHATASE 204 U/L (46-116); ALT/SGPT 11 U/L (7.0-40); AST/SGOT 15 U/L (<34); BILIRUBIN,TOTAL 0.2 MG/DL (0.3-1.2); BLOOD UREA NITROGEN 11 MG/DL (9-23); CALCIUM LEVEL 7.9 MG/DL (8.3-10.6); CARBON DIOXIDE LEVEL 29 MMOL/L (20-31); CHLORIDE LEVEL 103 MMOL/L (98-107); CREATININE FOR GFR 0.53 MG/DL (0.55-1.30); GLOMERULAR FILTRATION RATE > 60.0 (>45); GLUCOSE, FASTING 83 MG/DL (74-106); POTASSIUM SERUM 4.2 MMOL/L (3.5-5.1); SODIUM LEVEL 136 MMOL/L (136-145)
[2022-10-03] MEDS: ENOXAPARIN 40MG/0.4ML SYRINGE (J1650 PER 10MG) SC SCH (10:16)
[2022-10-03] MEDS: OMEPRAZOLE 20MG CAP PO SCH ×2 (10:16→21:06)
[2022-10-03] MEDS: MAGNESIUM OXIDE 400MG TAB (MAG-OX) PO SCH ×2 (10:18→21:07)
[2022-10-03] MEDS: MORPHINE 30 MG SA TAB PO SCH ×2 (10:18→21:07)
[2022-10-03] MEDS: DOCUSATE SODIUM 100MG CAPSULE PO SCH ×2 (10:18→21:07)
[2022-10-03] MEDS: DULoxetine 30MG CAPSULE (CYMBALTA) PO SCH ×2 (10:19→21:08)
[2022-10-03] MEDS: PANTOPRAZOLE 40MG TAB (PROTONIX) PO SCH (10:19)
[2022-10-03] MEDS: PREGABALIN 75 MG CAP(LYRICA) PO SCH ×2 (10:20→16:43)
[2022-10-03] MEDS: MICONAZOLE TOPICAL 2% CREAM 15GM TOP SCH ×2 (10:20→21:08)
[2022-10-03] MEDS: AUGMENTIN 875 MG TAB PO SCH (21:06)
[2022-10-03] MEDS: PREGABALIN 100 MG CAP (LYRICA) PO SCH (21:06)
[2022-10-03] MEDS: traZODone 50 MG TAB PO SCH (21:06)
[2022-10-04] VITALS (27 sets, daily range): BP systolic 140–173; BP diastolic 64–85; O2SAT 88–95
[2022-10-04] MEDS: LEVALBUTEROL 1.25MG 0.5ML CONCENTRATE NEB NEB SCH ×4 (01:11→20:06)
[2022-10-04] MEDS: KETOROLAC 30 MG/ML 1ML VIAL IV SCH ×2 (03:20→08:35)
[2022-10-04] MEDS: LEVOTHYROXINE 25MCG TABLET (0.025MG) PO SCH (05:45)
[2022-10-04 07:17] LABS: BASO % 0.3 % (0.0-1.0); EOS # 0.2 10^3/uL (0.0-0.5); EOS % 1.6 % (0.0-3.0); HEMATOCRIT 30.1 % (36.0-47.0); HEMOGLOBIN 9.2 g/dl (12.0-15.5); LYMPH # 1.9 10^3/uL (1.5-5.0); LYMPH % 14.6 % (24.0-44.0); MEAN CORPUSCULAR HEMOGLOBIN 24.6 pg (27.0-33.0); MEAN CORPUSCULAR HGB CONC 30.6 g/dl (32.0-36.5); MEAN CORPUSCULAR VOLUME 80.5 fl (80.0-96.0); MONO % 7.8 % (2.0-8.0); NEUTROPHILS # 9.3 10^3/uL (1.5-8.5); NEUTROPHILS % 71.5 % (36.0-66.0); PLATELET COUNT, AUTOMATED 439 10^3/uL (150-450); RED BLOOD COUNT 3.74 10^6/uL (4.00-5.40)
[2022-10-04 07:39] LABS: ALBUMIN 1.5 G/DL (3.2-5.2); ALKALINE PHOSPHATASE 204 U/L (46-116); ALT/SGPT 12 U/L (7.0-40); AST/SGOT 17 U/L (<34); BILIRUBIN,TOTAL < 0.2 MG/DL (0.3-1.2); BLOOD UREA NITROGEN 10 MG/DL (9-23); CALCIUM LEVEL 7.5 MG/DL (8.3-10.6); CARBON DIOXIDE LEVEL 32 MMOL/L (20-31); CHLORIDE LEVEL 100 MMOL/L (98-107); CREATININE FOR GFR 0.45 MG/DL (0.55-1.30); GLOMERULAR FILTRATION RATE > 60.0 (>45); GLUCOSE, FASTING 80 MG/DL (74-106); MAGNESIUM LEVEL 1.9 MG/DL (1.8-2.4); POTASSIUM SERUM 4.4 MMOL/L (3.5-5.1); SODIUM LEVEL 138 MMOL/L (136-145); TOTAL PROTEIN 5.2 G/DL (5.7-8.2)
[2022-10-04] MEDS: DULoxetine 30MG CAPSULE (CYMBALTA) PO SCH ×2 (08:35→21:29)
[2022-10-04] MEDS: ENOXAPARIN 40MG/0.4ML SYRINGE (J1650 PER 10MG) SC SCH (08:35)
[2022-10-04] MEDS: OMEPRAZOLE 20MG CAP PO SCH (08:35)
[2022-10-04] MEDS: PANTOPRAZOLE 40MG TAB (PROTONIX) PO SCH (08:36)
[2022-10-04] MEDS: PREGABALIN 75 MG CAP(LYRICA) PO SCH ×2 (08:36→15:00)
[2022-10-04] MEDS: MAGNESIUM OXIDE 400MG TAB (MAG-OX) PO SCH ×2 (08:37→21:36)
[2022-10-04] MEDS: MORPHINE 30 MG SA TAB PO SCH (08:37)
[2022-10-04] MEDS: AUGMENTIN 875 MG TAB PO SCH ×2 (08:37→21:30)
[2022-10-04] MEDS: DOCUSATE SODIUM 100MG CAPSULE PO SCH ×2 (08:37→21:30)
[2022-10-04] MEDS: guaiFENesin ER 600 MG TAB PO PRN (08:37)
[2022-10-04] MEDS: MICONAZOLE TOPICAL 2% CREAM 15GM TOP SCH ×2 (08:44→21:29)
[2022-10-04] MEDS: traZODone 50 MG TAB PO SCH (21:30)
[2022-10-04] MEDS: PREGABALIN 100 MG CAP (LYRICA) PO SCH (21:30)
[2022-10-04] MEDS: MORPHINE 15 MG SA TAB PO SCH (21:36)
[2022-10-05] MEDS: ACETAMINOPHEN TAB 650MG DOSE (2X325MG) PO PRN (00:45)
[2022-10-05] MEDS: LEVALBUTEROL 1.25MG 0.5ML CONCENTRATE NEB NEB SCH ×4 (02:00→19:55)
[2022-10-05 03:52] VITALS: BP 132/85
[2022-10-05 05:16] LABS: BASO % 0.2 % (0.0-1.0); EOS # 0.1 10^3/uL (0.0-0.5); LYMPH # 1.7 10^3/uL (1.5-5.0); MEAN CORPUSCULAR HEMOGLOBIN 24.9 pg (27.0-33.0); MEAN CORPUSCULAR VOLUME 80.1 fl (80.0-96.0); MONO # 0.8 10^3/uL (0.0-0.8); MONO % 6.8 % (2.0-8.0); NEUTROPHILS # 9.2 10^3/uL (1.5-8.5); NEUTROPHILS % 75.1 % (36.0-66.0); PLATELET COUNT, AUTOMATED 422 10^3/uL (150-450); RED BLOOD COUNT 3.62 10^6/uL (4.00-5.40); WHITE BLOOD COUNT 12.3 10^3/uL (4.0-10.0)
[2022-10-05 05:49] LABS: ALBUMIN 1.5 G/DL (3.2-5.2); ALKALINE PHOSPHATASE 174 U/L (46-116); ALT/SGPT 9 U/L (7.0-40); AST/SGOT 12 U/L (<34); BILIRUBIN,TOTAL 0.2 MG/DL (0.3-1.2); BLOOD UREA NITROGEN 7 MG/DL (9-23); CALCIUM LEVEL 7.4 MG/DL (8.3-10.6); CARBON DIOXIDE LEVEL 33 MMOL/L (20-31); CHLORIDE LEVEL 98 MMOL/L (98-107); CREATININE FOR GFR 0.42 MG/DL (0.55-1.30); GLOMERULAR FILTRATION RATE > 60.0 (>45); GLUCOSE, FASTING 86 MG/DL (74-106); POTASSIUM SERUM 4.1 MMOL/L (3.5-5.1); SODIUM LEVEL 135 MMOL/L (136-145); TOTAL PROTEIN 5.1 G/DL (5.7-8.2)
[2022-10-05] MEDS: LEVOTHYROXINE 25MCG TABLET (0.025MG) PO SCH (06:22)
[2022-10-05 07:31] VITALS: BP 160/79
[2022-10-05] MEDS: DULoxetine 30MG CAPSULE (CYMBALTA) PO SCH ×2 (08:54→22:48)
[2022-10-05] MEDS: DOCUSATE SODIUM 100MG CAPSULE PO SCH ×2 (08:54→22:50)
[2022-10-05] MEDS: ENOXAPARIN 40MG/0.4ML SYRINGE (J1650 PER 10MG) SC SCH (08:54)
[2022-10-05] MEDS: PANTOPRAZOLE 40MG TAB (PROTONIX) PO SCH (08:54)
[2022-10-05] MEDS: PREGABALIN 75 MG CAP(LYRICA) PO SCH ×2 (08:54→15:00)
[2022-10-05] MEDS: AUGMENTIN 875 MG TAB PO SCH ×2 (08:54→22:48)
[2022-10-05] MEDS: MAGNESIUM OXIDE 400MG TAB (MAG-OX) PO SCH ×2 (08:54→22:48)
[2022-10-05] MEDS: MORPHINE 15 MG SA TAB PO SCH ×2 (08:59→21:00)
[2022-10-05] MEDS: MICONAZOLE TOPICAL 2% CREAM 15GM TOP SCH ×2 (09:26→22:51)
[2022-10-05 10:31] VITALS: BP 146/70
[2022-10-05 12:00] VITALS: BP 141/68
[2022-10-05 16:00] VITALS: BP 136/52
[2022-10-05 16:08] LABS: BODY FLUID CULTURE Not indicated. (.); LEGIONELLA ANTIGEN URINE Negative (Negative); ORGANISM ID Not indicated. (.); SPECIMEN SOURCE Urine (.); URINE STREP PNEUMONIAE ANTIGEN Negative (Negative)
[2022-10-05 20:00] VITALS: BP 136/75
[2022-10-05] MEDS: guaiFENesin ER 600 MG TAB PO PRN (22:48)
[2022-10-05] MEDS: traZODone 50 MG TAB PO SCH (22:48)
[2022-10-05] MEDS: PREGABALIN 100 MG CAP (LYRICA) PO SCH (22:50)
[2022-10-06] VITALS: BP 113/60
[2022-10-06] MEDS: LEVALBUTEROL 1.25MG 0.5ML CONCENTRATE NEB NEB SCH ×2 (02:00→07:27)
[2022-10-06 04:00] VITALS: BP 129/60
[2022-10-06 05:45] LABS: BASO % 0.3 % (0.0-1.0); EOS # 0.1 10^3/uL (0.0-0.5); EOS % 0.5 % (0.0-3.0); HEMATOCRIT 32.4 % (36.0-47.0); HEMOGLOBIN 9.8 g/dl (12.0-15.5); LYMPH # 1.4 10^3/uL (1.5-5.0); LYMPH % 12.2 % (24.0-44.0); MEAN CORPUSCULAR HEMOGLOBIN 24.2 pg (27.0-33.0); MEAN CORPUSCULAR HGB CONC 30.2 g/dl (32.0-36.5); MONO # 0.8 10^3/uL (0.0-0.8); MONO % 7.4 % (2.0-8.0); NEUTROPHILS # 8.7 10^3/uL (1.5-8.5); NEUTROPHILS % 77.2 % (36.0-66.0); PLATELET COUNT, AUTOMATED 476 10^3/uL (150-450); RED BLOOD COUNT 4.05 10^6/uL (4.00-5.40); WHITE BLOOD COUNT 11.2 10^3/uL (4.0-10.0)
[2022-10-06] MEDS: LEVOTHYROXINE 25MCG TABLET (0.025MG) PO SCH (06:10)
[2022-10-06 06:15] LABS: ALBUMIN 1.6 G/DL (3.2-5.2); ALKALINE PHOSPHATASE 169 U/L (46-116); ALT/SGPT < 9 U/L (7.0-40); AST/SGOT 11 U/L (<34); BILIRUBIN,TOTAL 0.2 MG/DL (0.3-1.2); BLOOD UREA NITROGEN 7 MG/DL (9-23); CALCIUM LEVEL 8.3 MG/DL (8.3-10.6); CARBON DIOXIDE LEVEL 33 MMOL/L (20-31); CHLORIDE LEVEL 98 MMOL/L (98-107); CREATININE FOR GFR 0.44 MG/DL (0.55-1.30); GLOMERULAR FILTRATION RATE > 60.0 (>45); GLUCOSE, FASTING 84 MG/DL (74-106); MAGNESIUM LEVEL 1.9 MG/DL (1.8-2.4); POTASSIUM SERUM 4.3 MMOL/L (3.5-5.1); SODIUM LEVEL 135 MMOL/L (136-145); TOTAL PROTEIN 5.7 G/DL (5.7-8.2)
[2022-10-06 07:38] VITALS: BP 145/88
[2022-10-06 08:30] VITALS: BP 145/88
[2022-10-06] MEDS: PANTOPRAZOLE 40MG TAB (PROTONIX) PO SCH (08:30)
[2022-10-06] MEDS: MAGNESIUM OXIDE 400MG TAB (MAG-OX) PO SCH (08:30)
[2022-10-06] MEDS: DOCUSATE SODIUM 100MG CAPSULE PO SCH (08:30)
[2022-10-06] MEDS: ENOXAPARIN 40MG/0.4ML SYRINGE (J1650 PER 10MG) SC SCH (08:30)
[2022-10-06] MEDS: DULoxetine 30MG CAPSULE (CYMBALTA) PO SCH (08:30)
[2022-10-06] MEDS: AUGMENTIN 875 MG TAB PO SCH (08:30)
[2022-10-06] MEDS: PREGABALIN 75 MG CAP(LYRICA) PO SCH (08:31)
[2022-10-06] MEDS: MICONAZOLE TOPICAL 2% CREAM 15GM TOP SCH (08:31)
[2022-10-06] MEDS: MORPHINE 15 MG SA TAB PO SCH (08:35)
[2022-10-06] MEDS ORDERED: LISI30TA4 PO (11:04)
[2022-10-06] MEDS ORDERED: AMOX875T2 PO (11:04)
[2022-10-06 12:53] VITALS: BP 109/65
[2022-10-06] MEDS ORDERED: CVS1CAP2 PO (17:26)
== END 2022-10-06 13:43 | disposition home health service (06) | DRG 871 ==
LOC: M ED 16:52 → M ED INP 20:43 → M PCU 22:08
PROVIDERS: ADMIT Family Medicine; ATTEND Family Medicine
PROC: 0W9930Z Drainage of Right Pleural Cavity with Drainage Device, Percutaneous Approach (ICD-10-PCS; principal; 2022-09-29)
PROC: 3E0L3GC Introduction of Other Therapeutic Substance into Pleural Cavity, Percutaneous Approach (ICD-10-PCS; 2022-09-29)
DX: A41.9 Sepsis, unspecified organism (principal); J18.9 Pneumonia, unspecified organism; J86.9 Pyothorax without fistula; J96.21 Acute and chronic respiratory failure with hypoxia; M54.9 Dorsalgia, unspecified; I10 Essential (primary) hypertension; E03.9 Hypothyroidism, unspecified; K21.9 Gastro-esophageal reflux disease without esophagitis; M06.9 Rheumatoid arthritis, unspecified; R59.9 Enlarged lymph nodes, unspecified; E83.42 Hypomagnesemia; R33.9 Retention of urine, unspecified; F41.8 Other specified anxiety disorders; E16.2 Hypoglycemia, unspecified; E87.6 Hypokalemia; R07.89 Other chest pain; G89.29 Other chronic pain; Z90.49 Acquired absence of other specified parts of digestive tract; Z90.79 Acquired absence of other genital organ(s); Z98.84 Bariatric surgery status; Z96.651 Presence of right artificial knee joint; F17.210 Nicotine dependence, cigarettes, uncomplicated; Z79.890 Hormone replacement therapy; Z79.899 Other long term (current) drug therapy; Z88.8 Allergy status to other drugs, medicaments and biological substances; Z91.048 Other nonmedicinal substance allergy status; Z20.822 Contact with and (suspected) exposure to COVID-19

== ENCOUNTER → 2022-11-23 | Outpatient (CLI) | payer MEDICARE, OTHER ==
[~2022-11-23] MED LIST changes: +AMOX875T2 PO; +CAPS42.54 TOP; +CVS1CAP2 PO; +DULO30CA9 PO; +ERGO500029 PO; +HYPR15DR3 OU; +LISI30TA4 PO; +LYRI200C PO; +MS C15TA8 PO; +NARC1SPR NARES; +VANI1CRE5 TOP
== END ==
LOC: M RAD 12:30
PROVIDERS: ATTEND Internal Medicine Pulmonary Disease
DX: R91.8 Other nonspecific abnormal finding of lung field (principal)

== ENCOUNTER → 2023-06-28 | Outpatient (CLI) | payer MEDICARE, OTHER | LOC: M PLAIMG 12:38 | PROVIDERS: ATTEND Internal Medicine Pulmonary Disease | DX: R91.8 Other nonspecific abnormal finding of lung field (principal); I25.10 Atherosclerotic heart disease of native coronary artery without angina pectoris; I70.0 Atherosclerosis of aorta; K44.9 Diaphragmatic hernia without obstruction or gangrene ==

== ENCOUNTER → 2023-12-31 | Outpatient (CLI) | payer MEDICARE, OTHER | LOC: M RAD 14:26 | PROVIDERS: ATTEND Internal Medicine Pulmonary Disease | DX: R91.8 Other nonspecific abnormal finding of lung field (principal); K44.9 Diaphragmatic hernia without obstruction or gangrene ==

== ENCOUNTER → 2024-09-05 | Outpatient (CLI) | payer MEDICARE, OTHER ==
[~2024-09-05] MED LIST changes: -VITA500C19 PO; +VITA500C22 PO
== END ==
LOC: M WHC 13:42
PROVIDERS: ATTEND Family Medicine
DX: M81.0 Age-related osteoporosis without current pathological fracture (principal); Z12.31 Encounter for screening mammogram for malignant neoplasm of breast

== ENCOUNTER 2024-11-30 11:13 | Day surgery (SDC) | payer MEDICARE, OTHER ==
[~2024-11-30] VITALS: Ht 147.3 cm; Wt 64.0 kg
[~2024-11-30 11:13] MED LIST changes: +LISI20TA33 PO; +VITA100093 PO
[2024-11-30] MEDS ORDERED: GLYCOPYRROLATE INJ 0.2 MG/ML 2 ML VIAL As Ordered ONE (11:33)
[2024-11-30] MEDS ORDERED: propofoL 200 MG/20 ML VIAL As Ordered ONE (11:33)
[2024-11-30] MEDS ORDERED: LIDOCAINE 2% INJ 100 MG/5 ML SYRINGE As Ordered ONE (11:33)
[2024-11-30] MEDS ORDERED: LABETALOL 100MG/20ML VIAL As Ordered ONE (13:33)
[2024-11-30] MEDS ORDERED: GLUCAGON INJ 1MG VIAL As Ordered ONE (13:54)
[2024-11-30 14:00] VITALS: TEMP 98.5
[2024-11-30 14:20] VITALS: BP 122/63; O2SAT 94
== END 2024-11-30 14:30 | disposition home or self-care (01) ==
LOC: M OPP 11:13
PROVIDERS: ATTEND Internal Medicine Gastroenterology
DX: Z12.11 Encounter for screening for malignant neoplasm of colon (principal); K57.30 Diverticulosis of large intestine without perforation or abscess without bleeding; K64.8 Other hemorrhoids; Z80.0 Family history of malignant neoplasm of digestive organs; K44.9 Diaphragmatic hernia without obstruction or gangrene; R12 Heartburn; Z98.84 Bariatric surgery status; G47.30 Sleep apnea, unspecified; Z88.8 Allergy status to other drugs, medicaments and biological substances; Z91.048 Other nonmedicinal substance allergy status; Z79.891 Long term (current) use of opiate analgesic; Z79.899 Other long term (current) drug therapy; F17.210 Nicotine dependence, cigarettes, uncomplicated
CPT/HCPCS: 43235; G0105; J1596; J1610; J1920

== ENCOUNTER → 2025-02-26 | Outpatient (CLI) | payer MEDICARE, OTHER | LOC: M RAD 12:22 | PROVIDERS: ATTEND Internal Medicine Pulmonary Disease | DX: R91.8 Other nonspecific abnormal finding of lung field (principal); F17.218 Nicotine dependence, cigarettes, with other nicotine-induced disorders ==

== ENCOUNTER → 2025-03-26 | Outpatient (CLI) | payer MEDICARE, OTHER ==
[~2025-03-26] MED LIST changes: +B-12100010 PO; -IBUP-1022 PO; +IBUP600T42 PO; +MAGN400C2 PO; +VITA30005 SL
[2025-03-26 08:46] LABS: BASO # 0.0 10^3/uL (0.0-0.2); BASO % 0.4 % (0.0-1.0); EOS # 0.2 10^3/uL (0.0-0.5); EOS % 3.0 % (0.0-3.0); LYMPH # 2.0 10^3/uL (1.5-5.0); LYMPH % 26.8 % (24.0-44.0); MONO # 0.6 10^3/uL (0.0-0.8); MONO % 8.4 % (2.0-8.0); NEUTROPHILS # 4.5 10^3/uL (1.5-8.5); NEUTROPHILS % 61.1 % (36.0-66.0); PLATELET COUNT, AUTOMATED 306 10^3/uL (150-450)
[2025-03-26 09:23] LABS: ALT/SGPT 26 U/L (7.0-40); AST/SGOT 22 U/L (<34); CALCIUM LEVEL 8.8 MG/DL (8.3-10.6); CARBON DIOXIDE LEVEL 29 MMOL/L (20-31); CHLORIDE LEVEL 105 MMOL/L (98-107); CREATININE FOR GFR 0.66 MG/DL (0.55-1.30); GLOMERULAR FILTRATION RATE > 90.0 (>39); IRON (FE) 87 UG/DL (50-170); PERCENT SATURATION 22.7 % (13.2-45.0); POTASSIUM SERUM 4.8 MMOL/L (3.5-5.1); SODIUM LEVEL 142 MMOL/L (136-145)
== END ==
LOC: M LAB 08:01
PROVIDERS: ATTEND Internal Medicine Hematology & Oncology
DX: D64.9 Anemia, unspecified (principal)

== ENCOUNTER 2025-03-31 15:50 | Inpatient (IN) | payer MEDICARE, OTHER ==
[~2025-03-31] VITALS: Ht 144.8 cm; Wt 65.7 kg
[2025-03-31] MEDS: NS (Normal Saline) 0.9% 1,000 ML IV SCH (16:15)
[2025-03-31] MEDS: MORPHINE 4 MG/ML 1 ML VIAL IV ONE (16:15)
[2025-03-31 16:22] LABS: BASO # 0.0 10^3/uL (0.0-0.2); BASO % 0.3 % (0.0-1.0); EOS # 0.1 10^3/uL (0.0-0.5); EOS % 0.9 % (0.0-3.0); LYMPH # 1.4 10^3/uL (1.5-5.0); LYMPH % 13.7 % (24.0-44.0); MONO # 0.4 10^3/uL (0.0-0.8); MONO % 3.9 % (2.0-8.0); NEUTROPHILS # 8.2 10^3/uL (1.5-8.5); NEUTROPHILS % 80.5 % (36.0-66.0); PLATELET COUNT, AUTOMATED 282 10^3/uL (150-450)
[2025-03-31 16:34] LABS: INR 0.83
[2025-03-31 16:58] LABS: ALT/SGPT 35 U/L (7.0-40); AST/SGOT 39 U/L (<34); CALCIUM LEVEL 9.0 MG/DL (8.3-10.6); CARBON DIOXIDE LEVEL 27 MMOL/L (20-31); CHLORIDE LEVEL 105 MMOL/L (98-107); CREATININE FOR GFR 0.56 MG/DL (0.55-1.30); GLOMERULAR FILTRATION RATE > 90.0 (>39); POTASSIUM SERUM 4.2 MMOL/L (3.5-5.1); SODIUM LEVEL 141 MMOL/L (136-145)
[2025-04-01] VITALS (10 sets, daily range): BP systolic 132–220; BP diastolic 69–104; TEMP 97.2–98.5; O2SAT 92–98
[2025-04-01] MEDS: ACETAMINOPHEN *IV* 1,000 MG in IV 1 EA IV PRN (00:25)
[2025-04-01] MEDS: ENOXAPARIN 40 MG/0.4 ML SYRINGE (J1650 PER 10MG) SC ONE (00:26)
[2025-04-01] MEDS ORDERED: ALEN70TA82 PO (02:24)
[2025-04-01] MEDS ORDERED: HOME MED LIST COMPLETE! XX SCH (02:25)
[2025-04-01] MEDS: hydrALAZINE 20 MG/ML 1 ML VIAL IV PRN ×2 (03:17→12:48)
[2025-04-01 06:19] LABS: PLATELET COUNT, AUTOMATED 282 10^3/uL (150-450)
[2025-04-01 06:43] LABS: CALCIUM LEVEL 8.5 MG/DL (8.3-10.6); CARBON DIOXIDE LEVEL 24 MMOL/L (20-31); CHLORIDE LEVEL 104 MMOL/L (98-107); CREATININE FOR GFR 0.42 MG/DL (0.55-1.30); GLOMERULAR FILTRATION RATE > 90.0 (>39); MAGNESIUM LEVEL 1.8 MG/DL (1.8-2.4); POTASSIUM SERUM 3.4 MMOL/L (3.5-5.1); SODIUM LEVEL 140 MMOL/L (136-145)
[2025-04-01] MEDS: MORPHINE 4 MG/ML 1 ML VIAL IV PRN ×2 (07:02→15:20)
[2025-04-01] MEDS ORDERED: LIDOCAINE 2% 100 MG/5 ML SDV (FOR ANES.) As Ordered ONE (07:29)
[2025-04-01] MEDS ORDERED: KETOROLAC 30 MG/ML 1 ML VIAL As Ordered ONE (07:30)
[2025-04-01] MEDS ORDERED: dexAMETHasone 4 MG/ML 1 ML VIAL As Ordered ONE (07:30)
[2025-04-01] MEDS ORDERED: ONDANSETRON 4MG 2ML VIAL As Ordered ONE (07:30)
[2025-04-01] MEDS: OMEPRAZOLE 20MG CAP PO SCH (08:29)
[2025-04-01] MEDS: LEVOTHYROXINE 25 MCG TABLET (0.025MG) PO SCH (08:34)
[2025-04-01] MEDS: KCL 10MEQ/100ML SWI (KRUN) 10 MEQ in IV 1 EA IV SCH (08:49)
[2025-04-01] MEDS ORDERED: HYDROmorphone HCL 2 MG/ML 1 ML VIAL As Ordered ONE (11:16)
[2025-04-01] MEDS: TRANEXAMIC ACID 100 MG/ML 10ML VIAL As Ordered ONE (12:00)
[2025-04-01] MEDS ORDERED: LABETALOL 100 MG/20 ML VIAL As Ordered ONE (12:30)
[2025-04-01] MEDS ORDERED: LR 1,000 ML IV SCH (12:45)
[2025-04-01] MEDS ORDERED: ONDANSETRON 4MG 2ML VIAL IV PRN (12:45)
[2025-04-01] MEDS ORDERED: HYDROMORPHONE HCL 0.5 MG/0.5 ML SYRINGE As Ordered ONE (13:12)
[2025-04-01] MEDS: HYDROMORPHONE HCL 0.5 MG/0.5 ML SYRINGE IV PRN (13:13)
[2025-04-01] MEDS ORDERED: hydrALAZINE 20 MG/ML 1 ML VIAL IV ONE (13:15)
[2025-04-01] MEDS: KCL 10MEQ/100ML SWI (KRUN) IV ONE (16:32)
[2025-04-01] MEDS: ceFAZolin SOD 1 GM in DEXTROSE 5% (D5W) ADV/MINI-BAG 50 ML IV SCH (18:58)
[2025-04-01] MEDS: traZODone 50 MG TAB PO PRN (21:44)
[2025-04-02] VITALS (10 sets, daily range): BP systolic 123–188; BP diastolic 66–98; TEMP 97.6–99.6; O2SAT 92–97
[2025-04-02] MEDS: ACETAMINOPHEN 325 MG TAB PO PRN (00:45)
[2025-04-02 05:47] LABS: PLATELET COUNT, AUTOMATED 233 10^3/uL (150-450)
[2025-04-02 06:17] LABS: CALCIUM LEVEL 8.0 MG/DL (8.3-10.6); CARBON DIOXIDE LEVEL 24 MMOL/L (20-31); CHLORIDE LEVEL 103 MMOL/L (98-107); CREATININE FOR GFR 0.49 MG/DL (0.55-1.30); GLOMERULAR FILTRATION RATE > 90.0 (>39); MAGNESIUM LEVEL 1.7 MG/DL (1.8-2.4); POTASSIUM SERUM 3.6 MMOL/L (3.5-5.1); SODIUM LEVEL 138 MMOL/L (136-145)
[2025-04-02] MEDS: FLUZONE HIGH DOSE TRI (25-26) 0.5 ML SYRINGE IM.IMMUN ONE (10:32)
[2025-04-02] MEDS: ENOXAPARIN 40 MG/0.4 ML SYRINGE (J1650 PER 10MG) SC SCH (13:51)
[2025-04-02] MEDS: amLODIPine 5 MG TAB PO ONE (13:52)
[2025-04-02] MEDS: PREGABALIN 75 MG CAP PO SCH (13:52)
[2025-04-02] MEDS: LIDOCAINE 5% PATCH TD ONE (13:53)
[2025-04-02] MEDS: MAG SULF 1GM/100ML (MAG RUN) 1 GM in IV 1 EA IV SCH (14:29)
[2025-04-02] MEDS: ceFAZolin SOD 1 GM in DEXTROSE 5% (D5W) ADV/MINI-BAG 50 ML IV ONE (14:38)
[2025-04-02] MEDS: MORPHINE SULFATE TAB EXT REL 15 MG PO SCH (14:44)
[2025-04-02] MEDS: MAG SULF 1GM/100ML (MAG RUN) 1 GM in IV 1 EA IV ONE (15:58)
[2025-04-02] MEDS: guaiFENesin ER TABLET 600 MG TAB PO SCH (15:58)
[2025-04-02] MEDS ORDERED: guaiFENesin ER TABLET 600 MG TAB PO SCH (21:00)
[2025-04-02] MEDS: PREGABALIN 100 MG CAP PO SCH (21:19)
[2025-04-03 03:31] VITALS: BP 150/83; TEMP 97.3; O2SAT 94
[2025-04-03 05:37] LABS: PLATELET COUNT, AUTOMATED 243 10^3/uL (150-450)
[2025-04-03 06:06] LABS: CALCIUM LEVEL 8.0 MG/DL (8.3-10.6); CARBON DIOXIDE LEVEL 24 MMOL/L (20-31); CHLORIDE LEVEL 103 MMOL/L (98-107); CREATININE FOR GFR 0.48 MG/DL (0.55-1.30); GLOMERULAR FILTRATION RATE > 90.0 (>39); MAGNESIUM LEVEL 2.1 MG/DL (1.8-2.4); POTASSIUM SERUM 3.2 MMOL/L (3.5-5.1); SODIUM LEVEL 134 MMOL/L (136-145)
[2025-04-03 06:37] VITALS: BP 149/70; TEMP 97.9; O2SAT 94
[2025-04-03] MEDS: LIDOCAINE 5% PATCH TD SCH (08:50)
[2025-04-03] MEDS: POTASSIUM CHLORIDE 10MEQ SR TABLET PO SCH (08:50)
[2025-04-03] MEDS: VITAMIN D 1,000 INTERNATIONAL UNITS TABLET PO SCH (08:51)
[2025-04-03] MEDS: CYANOCOBALAMIN 500 MCG TAB PO SCH (08:52)
[2025-04-03 08:56] VITALS: BP 135/69
[2025-04-03] MEDS: amLODIPine 5 MG TAB PO SCH (08:56)
[2025-04-03] MEDS ORDERED: CAPSAICIN 0.1% CR 56.6 GM TOP PRN (10:10)
[2025-04-03] MEDS ORDERED: VANICREAM MOISTURIZING SKIN CREAM 113GM TUBE TOP PRN (10:10)
[2025-04-03] MEDS ORDERED: HYDR-4514 PO (11:06)
[2025-04-03] MEDS ORDERED: LIDO5TD TD (11:06)
[2025-04-03] MEDS ORDERED: ENOX40IN3 SC (11:06)
[2025-04-03] MEDS ORDERED: AMLO1TAB24 PO (11:06)
[2025-04-03] MEDS ORDERED: ACET32TAB PO (11:06)
[2025-04-03] MEDS ORDERED: MICONAZOLE TOPICAL 2% CREAM 15 GM TOP SCH (21:00)
[2025-04-04] MEDS ORDERED: ALENDRONATE 35 MG TABLET PO ONE (07:00)
[2025-04-09] MEDS ORDERED: ALENDRONATE 35 MG TABLET PO SCH (07:00)
== END 2025-04-03 14:59 | DRG 482 ==
LOC: EDBD 15:50 → M ED 15:50 → M ED INP 22:11 → M PCU 04-01 02:43
PROVIDERS: ADMIT Student in an Organized Health Care Education/Training Program; ATTEND Internal Medicine
PROC: 0QS606Z Reposition Right Upper Femur with Intramedullary Internal Fixation Device, Open Approach (ICD-10-PCS; principal; 2025-04-01 09:30)
DX: S72.144A Nondisplaced intertrochanteric fracture of right femur, initial encounter for closed fracture (principal); W18.09XA Striking against other object with subsequent fall, initial encounter; Y92.010 Kitchen of single-family (private) house as the place of occurrence of the external cause; Y93.89 Activity, other specified; Y99.8 Other external cause status; D50.9 Iron deficiency anemia, unspecified; M06.9 Rheumatoid arthritis, unspecified; G89.29 Other chronic pain; M54.9 Dorsalgia, unspecified; I10 Essential (primary) hypertension; E03.9 Hypothyroidism, unspecified; I16.0 Hypertensive urgency; F17.210 Nicotine dependence, cigarettes, uncomplicated; K21.9 Gastro-esophageal reflux disease without esophagitis; G62.9 Polyneuropathy, unspecified; M19.90 Unspecified osteoarthritis, unspecified site; E83.42 Hypomagnesemia; R33.9 Retention of urine, unspecified; M81.0 Age-related osteoporosis without current pathological fracture; E87.6 Hypokalemia; F41.9 Anxiety disorder, unspecified; F32.A Depression, unspecified; Z90.49 Acquired absence of other specified parts of digestive tract; Z96.652 Presence of left artificial knee joint; Z98.1 Arthrodesis status; Z79.891 Long term (current) use of opiate analgesic; Z79.899 Other long term (current) drug therapy; Z88.8 Allergy status to other drugs, medicaments and biological substances; Z91.048 Other nonmedicinal substance allergy status

== ENCOUNTER 2025-04-03 11:58 | Inpatient (IN) | payer MEDICARE, OTHER ==
[~2025-04-03] VITALS: Ht 147.3 cm; Wt 71.5 kg
[~2025-04-03 11:58] MED LIST changes: +ACET32TAB PO; +ALEN70TA82 PO; +AMLO1TAB24 PO; +ENOX40IN3 SC; +LIDO5TD TD
[2025-04-03] MEDS ORDERED: CAPSAICIN 0.1% CR 56.6 GM TOP PRN (14:05)
[2025-04-03] MEDS ORDERED: VANICREAM MOISTURIZING SKIN CREAM 113GM TUBE TOP PRN (14:05)
[2025-04-03] MEDS ORDERED: BISACODYL 5 MG TAB PO PRN (14:15)
[2025-04-03] MEDS ORDERED: MOM 30 ML SUSPENSION UDC PO PRN (14:15)
[2025-04-03] MEDS ORDERED: MAALOX 30 ML SUSP *UDC PO PRN (14:15)
[2025-04-03] MEDS ORDERED: FLEET ENEMA PR PRN (14:15)
[2025-04-03] MEDS ORDERED: SIMETHICONE 80MG CHEW TAB PO PRN (14:15)
[2025-04-03] MEDS ORDERED: ONDANSETRON 4MG ORAL DISINTEGRATING TAB SL PRN (14:15)
[2025-04-03] MEDS ORDERED: BISACODYL 10 MG SUPP PR PRN (14:15)
[2025-04-03 15:17] VITALS: BP 122/65; TEMP 97.2; O2SAT 92
[2025-04-03 20:00] VITALS: BP 123/70; TEMP 98; O2SAT 94
[2025-04-03] MEDS: MICONAZOLE TOPICAL 2% CREAM 15 GM TOP SCH (21:00)
[2025-04-03] MEDS: traZODone 50 MG TAB PO PRN (21:03)
[2025-04-03] MEDS: PREGABALIN 100 MG CAP PO SCH (21:03)
[2025-04-03] MEDS: MAGNESIUM OXIDE 400 MG TAB PO SCH (21:04)
[2025-04-03] MEDS: guaiFENesin ER TABLET 600 MG TAB PO SCH (21:04)
[2025-04-03] MEDS: OMEPRAZOLE 20MG CAP PO SCH (21:04)
[2025-04-03] MEDS: MORPHINE SULFATE TAB EXT REL 15 MG PO SCH (22:11)
[2025-04-04 04:00] VITALS: BP 115/66; TEMP 97; O2SAT 95
[2025-04-04] MEDS: LEVOTHYROXINE 25 MCG TABLET (0.025MG) PO SCH (04:57)
[2025-04-04] MEDS: ALENDRONATE 35 MG TABLET PO ONE (05:59)
[2025-04-04] MEDS: amLODIPine 5 MG TAB PO SCH (09:00)
[2025-04-04] MEDS: PREGABALIN 75 MG CAP PO SCH (09:09)
[2025-04-04] MEDS: CYANOCOBALAMIN 500 MCG TAB PO SCH (09:10)
[2025-04-04] MEDS: LIDOCAINE 5% PATCH TD SCH (09:16)
[2025-04-04] MEDS: FLUTICASONE PROPIONATE 0.05% NASAL SPRAY 16 GM NARES SCH (09:16)
[2025-04-04 11:39] LABS: BASO # 0.0 10^3/uL (0.0-0.2); BASO % 0.5 % (0.0-1.0); EOS # 0.1 10^3/uL (0.0-0.5); EOS % 1.4 % (0.0-3.0); LYMPH # 1.7 10^3/uL (1.5-5.0); LYMPH % 21.7 % (24.0-44.0); MONO # 0.8 10^3/uL (0.0-0.8); MONO % 9.9 % (2.0-8.0); NEUTROPHILS # 5.1 10^3/uL (1.5-8.5); NEUTROPHILS % 66.0 % (36.0-66.0); PLATELET COUNT, AUTOMATED 301 10^3/uL (150-450)
[2025-04-04] MEDS: LOPERAMIDE 2 MG CAPLET PO ONE (11:54)
[2025-04-04] MEDS: ENOXAPARIN 40 MG/0.4 ML SYRINGE (J1650 PER 10MG) SC SCH (11:55)
[2025-04-04 11:59] VITALS: BP 131/60; TEMP 98.3; O2SAT 98
[2025-04-04] MEDS ORDERED: LOPERAMIDE 2 MG CAPLET PO PRN (12:00)
[2025-04-04 12:04] LABS: ALT/SGPT 13 U/L (7.0-40); AST/SGOT 19 U/L (<34); CALCIUM LEVEL 8.3 MG/DL (8.3-10.6); CARBON DIOXIDE LEVEL 26 MMOL/L (20-31); CHLORIDE LEVEL 104 MMOL/L (98-107); CREATININE FOR GFR 0.62 MG/DL (0.55-1.30); GLOMERULAR FILTRATION RATE > 90.0 (>39); POTASSIUM SERUM 4.4 MMOL/L (3.5-5.1); SODIUM LEVEL 139 MMOL/L (136-145)
[2025-04-04 20:00] VITALS: BP 90/52; TEMP 98.4; O2SAT 94
[2025-04-04 20:51] VITALS: BP 90/56
[2025-04-04 21:05] VITALS: BP 122/70
[2025-04-05 04:00] VITALS: BP 134/69; TEMP 97.8; O2SAT 94
[2025-04-05 12:00] VITALS: BP 116/59; TEMP 98.6; O2SAT 95
[2025-04-05] MEDS: ACETAMINOPHEN 325 MG TAB PO PRN (15:10)
[2025-04-05 20:00] VITALS: BP 154/71; TEMP 98; O2SAT 97
[2025-04-06 04:00] VITALS: BP 141/71; TEMP 98.2; O2SAT 98
[2025-04-06 11:00] LABS: PLATELET COUNT, AUTOMATED 359 10^3/uL (150-450)
[2025-04-06 12:25] VITALS: BP 134/71; TEMP 97.1; O2SAT 96
[2025-04-06 19:26] VITALS: BP 178/84; TEMP 97.6; O2SAT 99
[2025-04-06 23:25] VITALS: BP 180/84
[2025-04-06] MEDS: **hydrALAZINE HCL** 25 MG TAB PO PRN (23:26)
[2025-04-07 01:45] VITALS: BP 164/76
[2025-04-07 03:42] VITALS: BP 116/56; TEMP 97.4; O2SAT 98
[2025-04-07 11:52] VITALS: BP 129/58; TEMP 97.9; O2SAT 99
[2025-04-07 20:00] VITALS: BP 107/56; TEMP 97.8; O2SAT 94
[2025-04-08 04:00] VITALS: BP 150/68; TEMP 97.2; O2SAT 97
[2025-04-08 12:00] VITALS: TEMP 97.3; O2SAT 96
[2025-04-08 20:00] VITALS: BP 135/62; TEMP 98.2; O2SAT 96
[2025-04-09 04:00] VITALS: BP 136/63; TEMP 96.5; O2SAT 96
[2025-04-09 07:28] LABS: PLATELET COUNT, AUTOMATED 435 10^3/uL (150-450)
[2025-04-09 12:00] VITALS: BP 111/61; TEMP 97.4; O2SAT 94
[2025-04-09] MEDS ORDERED: ALEN70TA82 PO (16:22)
[2025-04-09 20:02] VITALS: BP 131/61; TEMP 97.6; O2SAT 96
[2025-04-09 20:21] VITALS: BP 131/61
[2025-04-10 04:06] VITALS: BP 131/64; TEMP 97.2; O2SAT 97
== END 2025-04-10 11:35 | disposition home or self-care (01) | DRG 561 ==
LOC: M PM&R 15:05
PROVIDERS: ADMIT Physical Medicine & Rehabilitation; ATTEND Physical Medicine & Rehabilitation
DX: S72.144D Nondisplaced intertrochanteric fracture of right femur, subsequent encounter for closed fracture with routine healing (principal); D50.9 Iron deficiency anemia, unspecified; M19.90 Unspecified osteoarthritis, unspecified site; M06.9 Rheumatoid arthritis, unspecified; G89.29 Other chronic pain; M54.9 Dorsalgia, unspecified; I10 Essential (primary) hypertension; E03.9 Hypothyroidism, unspecified; K21.9 Gastro-esophageal reflux disease without esophagitis; F41.9 Anxiety disorder, unspecified; F32.A Depression, unspecified; R33.9 Retention of urine, unspecified; F17.210 Nicotine dependence, cigarettes, uncomplicated; G47.00 Insomnia, unspecified; G89.18 Other acute postprocedural pain; R35.0 Frequency of micturition; R19.7 Diarrhea, unspecified; G62.9 Polyneuropathy, unspecified; E83.42 Hypomagnesemia; I95.9 Hypotension, unspecified; Z96.652 Presence of left artificial knee joint; Z90.49 Acquired absence of other specified parts of digestive tract; Z98.1 Arthrodesis status; Z79.890 Hormone replacement therapy; Z79.899 Other long term (current) drug therapy; Z91.048 Other nonmedicinal substance allergy status; Z88.8 Allergy status to other drugs, medicaments and biological substances

== ENCOUNTER → 2025-04-24 | Outpatient (CLI) | payer MEDICARE, OTHER | LOC: M SOG 07:24 | PROVIDERS: ATTEND Physician Assistant | DX: S72.141D Displaced intertrochanteric fracture of right femur, subsequent encounter for closed fracture with routine healing (principal) ==

== ENCOUNTER 2025-05-23 16:50 | Inpatient (IN) | payer MEDICARE, OTHER ==
[~2025-05-23] VITALS: Ht 147.3 cm; Wt 65.3 kg
[2025-05-23] MEDS: MORPHINE 4 MG/ML 1 ML VIAL IV PRN ×2 (17:15→23:09)
[2025-05-23] MEDS: ONDANSETRON 4MG/2ML VIAL IV ONE (17:15)
[2025-05-23 17:22] LABS: BASO # 0.0 10^3/uL (0.0-0.2); BASO % 0.3 % (0.0-1.0); EOS # 0.1 10^3/uL (0.0-0.5); EOS % 0.8 % (0.0-3.0); LYMPH # 2.1 10^3/uL (1.5-5.0); LYMPH % 23.9 % (24.0-44.0); MONO # 0.8 10^3/uL (0.0-0.8); MONO % 9.4 % (2.0-8.0); NEUTROPHILS # 5.7 10^3/uL (1.5-8.5); NEUTROPHILS % 65.3 % (36.0-66.0); PLATELET COUNT, AUTOMATED 309 10^3/uL (150-450)
[2025-05-23 17:52] LABS: ALT/SGPT 85 U/L (7.0-40); AST/SGOT 146 U/L (<34); CALCIUM LEVEL 7.9 MG/DL (8.3-10.6); CARBON DIOXIDE LEVEL 27 MMOL/L (20-31); CHLORIDE LEVEL 101 MMOL/L (98-107); CREATININE FOR GFR 0.65 MG/DL (0.55-1.30); GLOMERULAR FILTRATION RATE > 90.0 (>39); POTASSIUM SERUM 4.8 MMOL/L (3.5-5.1); SODIUM LEVEL 134 MMOL/L (136-145)
[2025-05-23 17:56] LABS: INR 0.87
[2025-05-23] MEDS ORDERED: GUAI600T12 PO (19:34)
[2025-05-23] MEDS ORDERED: IBUP600T42 PO (19:34)
[2025-05-23] MEDS ORDERED: ASPI81TA26 PO (19:34)
[2025-05-23] MEDS ORDERED: HOME MED LIST COMPLETE! XX SCH (19:35)
[2025-05-23] MEDS ORDERED: FLON1SPR NARES (19:35)
[2025-05-23] MEDS ORDERED: traZODone 50 MG TAB PO PRN (19:55)
[2025-05-23] MEDS ORDERED: MOM 30 ML SUSPENSION UDC PO PRN (19:55)
[2025-05-23] MEDS ORDERED: ONDANSETRON 4MG/2ML VIAL IV PRN (19:55)
[2025-05-23] MEDS: NS (Normal Saline) 0.9% 1,000 ML IV SCH (20:23)
[2025-05-23] MEDS: PREGABALIN 100 MG CAP PO SCH (22:35)
[2025-05-23] MEDS: DOCUSATE SODIUM 100 MG CAPSULE PO SCH (22:35)
[2025-05-23 23:10] VITALS: BP 135/64; TEMP 98.2; O2SAT 94
[2025-05-24] VITALS (10 sets, daily range): BP systolic 138–190; BP diastolic 70–91; TEMP 97–98.7; O2SAT 92–96
[2025-05-24] MEDS: LEVOTHYROXINE 25 MCG TABLET (0.025MG) PO SCH (05:47)
[2025-05-24 07:05] LABS: PLATELET COUNT, AUTOMATED 278 10^3/uL (150-450)
[2025-05-24 07:48] LABS: ALT/SGPT 57 U/L (7.0-40); AST/SGOT 52 U/L (<34); CALCIUM LEVEL 8.1 MG/DL (8.3-10.6); CARBON DIOXIDE LEVEL 27 MMOL/L (20-31); CHLORIDE LEVEL 109 MMOL/L (98-107); CREATININE FOR GFR 0.59 MG/DL (0.55-1.30); GLOMERULAR FILTRATION RATE > 90.0 (>39); MAGNESIUM LEVEL 1.9 MG/DL (1.8-2.4); POTASSIUM SERUM 4.4 MMOL/L (3.5-5.1); SODIUM LEVEL 143 MMOL/L (136-145)
[2025-05-24] MEDS: ENOXAPARIN 40 MG/0.4 ML SYRINGE (J1650 PER 10MG) SC SCH (08:58)
[2025-05-24] MEDS: PREGABALIN 75 MG CAP PO SCH (08:58)
[2025-05-24] MEDS ORDERED: ASPIRIN 81 MG ENTERIC TABLET PO SCH (09:00)
[2025-05-24] MEDS: **hydrALAZINE** 50 MG TAB PO SCH (14:27)
[2025-05-24] MEDS ORDERED: LABETALOL 100 MG/20 ML VIAL IV PRN (16:40)
[2025-05-24] MEDS: **hydrALAZINE** 50 MG TAB PO STA (17:02)
[2025-05-24] MEDS: METOPROLOL SUCC. 50 MG *XL* TAB PO SCH (19:29)
[2025-05-24] MEDS: MORPHINE SULFATE TAB EXT REL 15 MG PO SCH (20:58)
[2025-05-24] MEDS: OMEPRAZOLE 20MG CAP PO SCH (20:58)
[2025-05-24] MEDS ORDERED: **hydrALAZINE** 50 MG TAB PO SCH (22:00)
[2025-05-25] VITALS (10 sets, daily range): BP systolic 127–184; BP diastolic 63–90; TEMP 97.1–98.2; O2SAT 94–97
[2025-05-25] MEDS: amLODIPine 5 MG TAB PO SCH (05:44)
[2025-05-25 06:00] LABS: BASO # 0.0 10^3/uL (0.0-0.2); BASO % 0.4 % (0.0-1.0); EOS # 0.1 10^3/uL (0.0-0.5); EOS % 0.7 % (0.0-3.0); LYMPH # 1.6 10^3/uL (1.5-5.0); LYMPH % 18.4 % (24.0-44.0); MONO # 0.8 10^3/uL (0.0-0.8); MONO % 9.1 % (2.0-8.0); NEUTROPHILS # 6.1 10^3/uL (1.5-8.5); NEUTROPHILS % 71.0 % (36.0-66.0); PLATELET COUNT, AUTOMATED 291 10^3/uL (150-450)
[2025-05-25 06:26] LABS: CALCIUM LEVEL 8.8 MG/DL (8.3-10.6); CARBON DIOXIDE LEVEL 26 MMOL/L (20-31); CHLORIDE LEVEL 107 MMOL/L (98-107); CREATININE FOR GFR 0.47 MG/DL (0.55-1.30); GLOMERULAR FILTRATION RATE > 90.0 (>39); POTASSIUM SERUM 3.8 MMOL/L (3.5-5.1); SODIUM LEVEL 141 MMOL/L (136-145)
[2025-05-25] MEDS ORDERED: MIDAZOLAM INJ 2 MG/2 ML VIAL As Ordered ONE (11:56)
[2025-05-25] MEDS ORDERED: KETAMINE HCL 200 MG/20 ML VIAL As Ordered ONE (11:56)
[2025-05-25] MEDS: LIDOCAINE 1% SDV 5 ML VIAL PN ONE (13:07)
[2025-05-25] MEDS: ROPIvacaine 0.5% 30ML VIAL PN ONE (13:07)
[2025-05-25] MEDS: MIDAZOLAM INJ 2 MG/2 ML VIAL IV PRN (13:07)
[2025-05-25] MEDS: TRANEXAMIC ACID 100 MG/ML 10ML VIAL As Ordered ONE (13:55)
[2025-05-25] MEDS: VANCOMYCIN 1000MG/20ML VIAL As Ordered ONE (14:27)
[2025-05-25] MEDS ORDERED: ACETAMINOPHEN 1000MG/100ML IV BAG As Ordered ONE (14:39)
[2025-05-25] MEDS ORDERED: ONDANSETRON 4MG/2ML VIAL As Ordered ONE (14:44)
[2025-05-25] MEDS ORDERED: KETOROLAC 30 MG/ML 1 ML VIAL As Ordered ONE (14:44)
[2025-05-25] MEDS: HYDROMORPHONE HCL 0.5 MG/0.5 ML SYRINGE IV PRN (15:30)
[2025-05-25] MEDS: ONDANSETRON 4MG/2ML VIAL IV PRN (15:30)
[2025-05-25] MEDS: ceFAZolin SODIUM 2 GM in DEXTROSE 5% (D5W) ADV/MINI-BAG 50 ML IV SCH (21:03)
[2025-05-26 00:23] VITALS: BP 109/58; TEMP 97.1; O2SAT 94
[2025-05-26] MEDS: ACETAMINOPHEN 325 MG TAB PO PRN (01:35)
[2025-05-26 04:08] VITALS: BP 125/60; TEMP 97; O2SAT 95
[2025-05-26 06:05] LABS: BASO # 0.0 10^3/uL (0.0-0.2); BASO % 0.4 % (0.0-1.0); EOS # 0.2 10^3/uL (0.0-0.5); EOS % 1.8 % (0.0-3.0); LYMPH # 2.4 10^3/uL (1.5-5.0); LYMPH % 29.5 % (24.0-44.0); MONO # 0.9 10^3/uL (0.0-0.8); MONO % 10.6 % (2.0-8.0); NEUTROPHILS # 4.7 10^3/uL (1.5-8.5); NEUTROPHILS % 57.3 % (36.0-66.0); PLATELET COUNT, AUTOMATED 296 10^3/uL (150-450)
[2025-05-26 06:33] LABS: CALCIUM LEVEL 8.0 MG/DL (8.3-10.6); CARBON DIOXIDE LEVEL 25 MMOL/L (20-31); CHLORIDE LEVEL 105 MMOL/L (98-107); CREATININE FOR GFR 0.61 MG/DL (0.55-1.30); GLOMERULAR FILTRATION RATE > 90.0 (>39); POTASSIUM SERUM 4.2 MMOL/L (3.5-5.1); SODIUM LEVEL 140 MMOL/L (136-145)
[2025-05-26 08:04] VITALS: BP 109/57; TEMP 98.6; O2SAT 95
[2025-05-26] MEDS: ENOXAPARIN 40 MG/0.4 ML SYRINGE (J1650 PER 10MG) SC SCH (09:36)
[2025-05-26 14:00] VITALS: BP 119/61; TEMP 98.6; O2SAT 93
[2025-05-26] MEDS: IBUPROFEN 600 MG TAB PO SCH (15:46)
[2025-05-26 16:00] VITALS: BP 135/65; TEMP 98.9; O2SAT 93
[2025-05-26 20:30] VITALS: BP 120/62; TEMP 97.7; O2SAT 94
[2025-05-27 04:28] VITALS: BP 150/70; TEMP 97.7; O2SAT 94
[2025-05-27 05:59] LABS: BASO # 0.0 10^3/uL (0.0-0.2); BASO % 0.6 % (0.0-1.0); EOS # 0.3 10^3/uL (0.0-0.5); EOS % 3.6 % (0.0-3.0); LYMPH # 2.7 10^3/uL (1.5-5.0); LYMPH % 38.3 % (24.0-44.0); MONO # 0.7 10^3/uL (0.0-0.8); MONO % 9.8 % (2.0-8.0); NEUTROPHILS # 3.3 10^3/uL (1.5-8.5); NEUTROPHILS % 47.4 % (36.0-66.0); PLATELET COUNT, AUTOMATED 293 10^3/uL (150-450)
[2025-05-27 06:23] LABS: CALCIUM LEVEL 7.5 MG/DL (8.3-10.6); CARBON DIOXIDE LEVEL 27 MMOL/L (20-31); CHLORIDE LEVEL 105 MMOL/L (98-107); CREATININE FOR GFR 0.54 MG/DL (0.55-1.30); GLOMERULAR FILTRATION RATE > 90.0 (>39); POTASSIUM SERUM 4.2 MMOL/L (3.5-5.1); SODIUM LEVEL 139 MMOL/L (136-145)
[2025-05-27 08:00] VITALS: BP 158/71; TEMP 97.7; O2SAT 98
[2025-05-27] MEDS: MIRALAX *UNIT DOSE* 17 GM PACKET PO SCH (08:46)
[2025-05-27 08:50] VITALS: BP 132/70
[2025-05-27 12:00] VITALS: BP 136/65; TEMP 97.5; O2SAT 92
[2025-05-27] MEDS ORDERED: COLA100C5 PO (13:08)
[2025-05-27] MEDS ORDERED: ASPI81TA26 PO (13:08)
== END 2025-05-27 14:16 | disposition home or self-care (01) | DRG 482 ==
LOC: EDBD 16:50 → M ED 16:50 → M ED INP 19:55 → M MSPAV 22:52 → M PCU 05-24 20:07 → M MSPAV 05-26 13:46
PROVIDERS: ADMIT Internal Medicine; ATTEND Internal Medicine
PROC: 0QS736Z Reposition Left Upper Femur with Intramedullary Internal Fixation Device, Percutaneous Approach (ICD-10-PCS; principal; 2025-05-25 13:00)
DX: S72.142A Displaced intertrochanteric fracture of left femur, initial encounter for closed fracture (principal); W18.30XA Fall on same level, unspecified, initial encounter; Y92.010 Kitchen of single-family (private) house as the place of occurrence of the external cause; Y93.89 Activity, other specified; Y99.8 Other external cause status; D50.9 Iron deficiency anemia, unspecified; M19.90 Unspecified osteoarthritis, unspecified site; M06.9 Rheumatoid arthritis, unspecified; G89.29 Other chronic pain; M54.9 Dorsalgia, unspecified; I10 Essential (primary) hypertension; E03.9 Hypothyroidism, unspecified; K21.9 Gastro-esophageal reflux disease without esophagitis; F32.A Depression, unspecified; F41.9 Anxiety disorder, unspecified; F17.210 Nicotine dependence, cigarettes, uncomplicated; R74.01 Elevation of levels of liver transaminase levels; G62.9 Polyneuropathy, unspecified; M81.0 Age-related osteoporosis without current pathological fracture; G47.33 Obstructive sleep apnea (adult) (pediatric); K11.7 Disturbances of salivary secretion; Z79.82 Long term (current) use of aspirin; Z79.891 Long term (current) use of opiate analgesic; Z90.49 Acquired absence of other specified parts of digestive tract; Z96.652 Presence of left artificial knee joint; Z98.1 Arthrodesis status; Z79.890 Hormone replacement therapy; Z79.899 Other long term (current) drug therapy; Z88.8 Allergy status to other drugs, medicaments and biological substances; Z91.048 Other nonmedicinal substance allergy status

== ENCOUNTER → 2025-06-08 | Outpatient (CLI) | payer MEDICARE, OTHER ==
[~2025-06-08] MED LIST changes: +ASPI81TA26 PO; +COLA100C5 PO; +FLON1SPR NARES; +GUAI600T12 PO
== END ==
LOC: M SOG 08:01
PROVIDERS: ATTEND Physician Assistant
DX: S72.141D Displaced intertrochanteric fracture of right femur, subsequent encounter for closed fracture with routine healing (principal); W18.30XD Fall on same level, unspecified, subsequent encounter